=== PATIENT | female | born 1980 | race Caucasian/White ===

== ENCOUNTER 2016-08-21 13:58 | Emergency (ER) | payer OTHER ==
[2016-08-21 14:05] VITALS: RESP 20
[2016-08-21] MEDS ORDERED: MORPHINE SULFATE 10 MG/ML SYRINGE IM STA (14:31)
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
[2016-08-21 15:03] VITALS: BP 133/78; PULSE 80; TEMP 98.4
== END 2016-08-21 15:03 | disposition home or self-care (01) ==
LOC: EC 13:58
DX: T23.291A Burn of second degree of multiple sites of right wrist and hand, initial encounter (principal); T23.292A Burn of second degree of multiple sites of left wrist and hand, initial encounter; T31.0 Burns involving less than 10% of body surface; X10.2XXA Contact with fats and cooking oils, initial encounter; Y93.G3 Activity, cooking and baking; F17.200 Nicotine dependence, unspecified, uncomplicated
CPT/HCPCS: 96372; 99283; J2270

== ENCOUNTER 2016-08-24 17:32 | Emergency (ER) | payer OTHER ==
--- NOTE | 2016-08-24 18:51 | ED ---
General Adult HPI - General Chief complaint: Skin/Abscess/Foreign Body Stated complaint: Recheck on burn wounds Time Seen by Provider: 08/24/16 18:37 Source: patient, RN notes reviewed Mode of arrival: ambulatory Limitations: no limitations - History of Present Illness Initial comments: This is a 36-year-old female presents with a follow-up from sullivan to bilateral hands on 08/21/2016. Patient has been applying bacitracin to the wounds multiple times per day and keeping them wrapped. Patient has noticed some increased blistering but denies any signs of infection. Patient still has range of motion to bilateral hands and denies any loss of sensation. Patient denies any recent fever, chills, shortness breath, chest pain, abdominal pain, nausea/vomiting/diarrhea, back pain, numbness, tingling, hematuria, headache, or visual changes, or any other complaints. - Related Data Home Medications Medication Instructions Recorded Confirmed Ibuprofen [Motrin] 800 mg PO Q6H PRN 08/24/16 08/24/16 Previous Rx's Medication Instructions Recorded HYDROcodone/APAP 5-325MG [[place] 1 - 2 tab PO Q4HR PRN #20 tab 08/21/16 5-325] HYDROcodone/APAP 5-325MG [[place] 1 tab PO Q6HR #7 tab 08/24/16 5-325] Allergies Allergy/AdvReac Type Severity Reaction Status Date / Time No Known Allergies Allergy Verified 08/24/16 18:11 Review of Systems ROS Statement: Those systems with pertinent positive or pertinent negative responses have been documented in the HPI. ROS Other: All systems not noted in ROS Statement are negative. Past Medical History Past Medical History: Hypertension Additional Past Medical History / Comment(s): HEPATITIS C History of Any Multi-Drug Resistant Organisms: None Reported Past Surgical History: No Surgical Hx Reported Past Psychological History: No Psychological Hx Reported Smoking Status: Current some day smoker Past Alcohol Use History: None Reported Past Drug Use History: None Reported General Exam - General Exam Comments Initial Comments: General: The patient is awake and alert, in no distress, and does not appear acutely ill. Neck: The neck is supple, there is no tenderness or JVD. Cardiovascular: There is a regular rate and rhythm. No murmur, rub or gallop is appreciated. Respiratory: Lungs are clear to auscultation, respirations are non-labored, breath sounds are equal. No wheezes, stridor, rales, or rhonchi. Musculoskeletal: Full range of motion, strength last 5/5 and Sensation intact. Radial pulses 2+ bilaterally. Neurological: A&O x 3. CN II-XII intact, There are no obvious motor or sensory deficits. Coordination appears grossly intact. Speech is normal. Skin: There is erythema that blanches to the dorsal and medial aspects of bilateral hands. There is blistering to these areas as well consistent with superficial partial thickness burn. Skin is warm and dry. Psychiatric: Normal mood and affect. Limitations: no limitations Course Vital Signs 08/24/16 17:54 Temperature 98.1 F Pulse Rate 99 Respiratory 20 Rate Blood Pressure 143/90 O2 Sat by Pulse 99 Oximetry Medical Decision Making - Medical Decision Making Is a 36-year-old female presents with sullivan to bilateral hands. On physical exam there is erythema that blanches to the dorsal and medial aspects of bilateral hands. There is blistering to these areas as well consistent with superficial partial thickness burn. Skin is warm and dry. Discussed the patient will receive Silvadene cream to apply to the affected areas as well. Discussed with patient to continue bacitracin 1-4 times daily and keep areas wrapped. Discussed range of motion exercises. Discussed close follow-up with the primary care physician. Discussed signs of infection and return parameters.Discussed that patient should follow up with PCP in one to 2 days or return to the [facility] for any worsening symptoms or for any further concerns. Patient was receptive to this plan and patient will be discharged home. I discussed his case with attending physician Dr. Dubon who agrees the plan as stated above. Disposition Clinical Impression: Second degree sullivan Disposition: HOME SELF-CARE Condition: Good Instructions: Second Degree Burn (ED) Additional Instructions: Please of light Silvadene cream to affected areas once or twice daily. May reapply if cream is rubbed off with activity. May continue bacitracin if needed. Please take pain medication as prescribed. Please follow-up with primary care physician in one to 2 days or return to the [facility] for any worsening symptoms or for any further concerns. Prescriptions: HYDROcodone/APAP 5-325MG [[place] 5-325] 1 tab PO Q6HR #7 tab Time of Disposition: 19:14
[2016-08-24 19:33] VITALS: BP 144/96; PULSE 108; RESP 16; TEMP 98.3
== END 2016-08-24 19:33 | disposition home or self-care (01) ==
LOC: EC 17:32
DX: T23.262D Burn of second degree of back of left hand, subsequent encounter (principal); T23.261D Burn of second degree of back of right hand, subsequent encounter; T31.0 Burns involving less than 10% of body surface; F17.200 Nicotine dependence, unspecified, uncomplicated; X58.XXXD Exposure to other specified factors, subsequent encounter
CPT/HCPCS: 99282

== ENCOUNTER 2016-10-16 17:11 | Emergency (ER) | payer OTHER ==
[2016-10-16 17:29] VITALS: BP 144/94; PULSE 75; RESP 20; TEMP 99.5
--- NOTE | 2016-10-16 17:57 | ED ---
ENT HPI - General Chief complaint: ENT Stated complaint: Q-tip in ear Source: patient Mode of arrival: ambulatory Limitations: no limitations - History of Present Illness Initial comments: Patient is a 36-year-old white female presenting to the emergency department with complaints of tip of Q-tip in her right ear. Patient states she was showering and was cleaning her ears when the top of the Q-tip was gone after she reported from her ear. Patient states that she attempted to remove Q-tip with tracer but is afraid that she might have lots to further in her ear. Patient currently denies ear pain. No history of recent illness, chills, fevers , shortness of breath, chest pain, or abdominal pain. No history of same. Patient denies problems with cerumen impaction. Patient denies difficulty hearing. MD complaint: foreign body Onset/Timin -: hour(s) Location: R ear - Related Data Home Medications Medication Instructions Recorded Confirmed No Known Home Medications [No 10/16/16 10/16/16 Known Home Medications] Allergies Allergy/AdvReac Type Severity Reaction Status Date / Time No Known Allergies Allergy Verified 10/16/16 17:29 Review of Systems ROS Statement: Those systems with pertinent positive or pertinent negative responses have been documented in the HPI. ROS Other: All systems not noted in ROS Statement are negative. Past Medical History Past Medical History: Hypertension Additional Past Medical History / Comment(s): HEPATITIS C History of Any Multi-Drug Resistant Organisms: None Reported Past Surgical History: No Surgical Hx Reported Past Psychological History: No Psychological Hx Reported Smoking Status: Current some day smoker Past Alcohol Use History: None Reported Past Drug Use History: None Reported General Exam - General Exam Comments Initial Comments: GENERAL: Pt awake and alert, well-appearing, well-nourished, and in no acute distress. HEAD: Atraumatic, normocephalic. EYES: Pupils equal, round and reactive to light, extraocular movements intact, sclera anicteric, conjunctiva are normal. ENT: Oropharynx clear without exudates. Moist mucous membranes. NECK:Normal range of motion, supple without lymphadenopathy or JVD. LUNGS: Breath sounds clear to auscultation bilaterally. No wheezes, rales, or rhonchi. HEART: Heart S1, S2, no S3 or S4. Regular rate and rhythm. No murmurs, rubs or gallops. ABDOMEN: Soft, nontender, nondistended, normoactive bowel sounds. NEUROLOGICAL: Pt oriented x 3. No focal deficits. Strength and sensation grossly intact. PSYCH: Normal mood, normal affect. SKIN: Warm, dry, intact. Normal turgor. No rashes or lesions. Limitations: no limitations ENT exam: Present: normal exam, mucous membranes moist, TM's normal bilaterally , normal external ear exam, other (No evidence of foreign body before and after irrigating right ear.) Course Vital Signs 10/16/16 17:27 Temperature 99.5 F Pulse Rate 75 Respiratory 20 Rate Blood Pressure 144/94 O2 Sat by Pulse 100 Oximetry Medical Decision Making - Medical Decision Making Foreign body to right ear, resolved prior to admission. Right ear irrigated with water with no evidence of foreign body. Patient instructed to follow-up with ENT for further sensation of foreign body or any other ear symptoms. Patient agrees to treatment plan. Discharge instructions and return parameters reviewed. Disposition Clinical Impression: Foreign body sensation in right ear canal Disposition: HOME SELF-CARE Condition: Good Instructions: Ear Foreign Body (ED) Additional Instructions: Please follow-up with ENT with further symptoms of ear pain or sensation of foreign body. Please return to the emergency department if symptoms do not improve or get worse. Follow-up with primary care physician as needed. Referrals: Priya Goldsmith MD [Primary Care Provider] - 1-2 days Jonatan Dominguez MD [STAFF PHYSICIAN] - 1-2 days (Follow-up as needed) Time of Disposition: 17:57
== END 2016-10-16 18:06 | disposition home or self-care (01) ==
LOC: EC 17:11
DX: R20.8 Other disturbances of skin sensation (principal); F17.200 Nicotine dependence, unspecified, uncomplicated
CPT/HCPCS: 99282

== ENCOUNTER 2017-01-10 14:55 | Inpatient (IN) | payer OTHER ==
[2017-01-10] MEDS ORDERED: SODIUM CHLORIDE 0.9% 500 ML IV STA ×2 (15:14→19:59)
[2017-01-10] MEDS ORDERED: ACETAMINOPHEN TAB 500 MG TAB PO STA (15:15)
--- NOTE | 2017-01-10 15:27 | ED ---
General Adult HPI - General Source: patient, family, RN notes reviewed Mode of arrival: wheelchair Limitations: no limitations <Lee Adair - Last Filed: 01/10/17 16:20> <Lee Ramos - Last Filed: 01/10/17 20:02> - General Chief complaint: Overdose Stated complaint: Mental Health Time Seen by Provider: 01/10/17 15:00 - History of Present Illness Initial comments: This is a 36-year-old female comes in stating she wanted to kill herself last night she took a bunch of drugs. Patient states before midnight she did the drugs but she is not exactly sure when a patient states she took LSD took a bottle full of Wellbutrin a bottle for Klonopin and drank alcohol. Patient states she is a daily drinker. Patient denies any headache patient denies numbness weakness. Patient denies palpitations difficulty breathing or shortness of breath per patient denies any abdominal pain patient denies nausea vomiting diarrhea. (Lee Adair) - Related Data Home Medications Medication Instructions Recorded Confirmed Folic Acid 1 mg PO DAILY 01/10/17 01/10/17 Propranolol [Inderal] 10 mg PO DAILY 01/10/17 01/10/17 buPROPion [Wellbutrin] 75 mg PO BID 01/10/17 01/10/17 clonazePAM [KlonoPIN] 0.5 mg PO DAILY PRN 01/10/17 01/10/17 Allergies Allergy/AdvReac Type Severity Reaction Status Date / Time No Known Allergies Allergy Verified 01/10/17 15:53 Review of Systems ROS Other: All systems not noted in ROS Statement are negative. <Lee Adair - Last Filed: 01/10/17 16:20> ROS Other: All systems not noted in ROS Statement are negative. <Lee Ramos - Last Filed: 01/10/17 20:02> ROS Statement: Those systems with pertinent positive or pertinent negative responses have been documented in the HPI. Past Medical History Past Medical History: Hypertension Additional Past Medical History / Comment(s): HEPATITIS C History of Any Multi-Drug Resistant Organisms: None Reported Past Surgical History: No Surgical Hx Reported Past Psychological History: No Psychological Hx Reported Smoking Status: Current some day smoker Past Alcohol Use History: None Reported, Occasional Past Drug Use History: None Reported, Opiates <Lee Adair - Last Filed: 01/10/17 16:20> General Exam Limitations: no limitations <AdairLee - Last Filed: 01/10/17 16:20> <Lee Ramos - Last Filed: 01/10/17 20:02> - General Exam Comments Initial Comments: GENERAL: Patient is well-developed and well-nourished. Patient is nontoxic and well- hydrated and is in mild distress. ENT: Neck is soft and supple. No significant lymphadenopathy is noted. Oropharynx is clear. Moist mucous membranes. Neck has full range of motion without eliciting any pain. EYES: The sclera were anicteric and conjunctiva were pink and moist. Extraocular movements were intact and pupils were equal round and reactive to light. Eyelids were unremarkable. PULMONARY: Unlabored respirations. Good breath sounds bilaterally. No audible rales rhonchi or wheezing was noted. CARDIOVASCULAR: There is a regular rate and rhythm without any murmurs gallops or rubs. ABDOMEN: Soft and nontender with normal bowel sounds. No palpable organomegaly was noted. There is no palpable pulsatile mass. SKIN: Skin is clear with no lesions or rashes and otherwise unremarkable. NEUROLOGIC: Patient is alert and oriented x3. Cranial nerves II through XII are grossly intact. Motor and sensory are also intact. Normal speech, volume and content. Symmetrical smile. MUSCULOSKELETAL: Normal extremities with adequate strength and full range of motion. LYMPHATICS: No significant lymphadenopathy is noted PSYCHIATRIC: Patient states she is suicidal. (Lee Adair) Medical Decision Making <Lee Adair - Last Filed: 01/10/17 16:20> - Lab Data Result diagrams: 01/10/17 16:02 01/10/17 16:02 <Lee Ramos - Last Filed: 01/10/17 20:02> - Medical Decision Making EKG shows sinus tachycardia at 114 bpm AR interval is on a 56 dresses 80 QT interval 332 QTC is 457. Patient's EKG shows no ST segment elevation however there is a little bit of depression in V4 through V6 leads. Chest x-ray shows no acute abnormality. Dr. Ramos taking over care of this patient at 5 PM (Lee Adair) 36-year-old female Angelita Friedman reevaluation Cissell temper multiple drug overdose, patient found to be going to alcohol withdrawal, likely DTs, will be admitted for supportive care, patient also had suicide precautions, psychiatric evaluation (Lee Ramos) - Lab Data Lab Results 01/10/17 01/10/17 01/10/17 Range/Units 16:02 16:02 16:02 WBC 8.0 (3.8-10.6) k/uL RBC 4.30 (3.80-5.40) m/uL Hgb 13.2 (11.4-16.0) gm/dL Hct 39.1 (34.0-46.0) % MCV 91.0 (80.0-100.0) fL MCH 30.7 (25.0-35.0) pg MCHC 33.8 (31.0-37.0) g/dL RDW 13.2 (11.5-15.5) % Plt Count 295 (150-450) k/uL Neutrophils % 76 % Lymphocytes % 15 % Monocytes % 4 % Eosinophils % 2 % Basophils % 0 % Neutrophils # 6.1 (1.3-7.7) k/uL Lymphocytes # 1.2 (1.0-4.8) k/uL Monocytes # 0.4 (0-1.0) k/uL Eosinophils # 0.1 (0-0.7) k/uL Basophils # 0.0 (0-0.2) k/uL PT (9.0-12.0) sec INR (<1.1) APTT (22.0-30.0) sec Sodium 136 L (137-145) mmol/L Potassium 3.9 (3.5-5.1) mmol/L Chloride 103 (98-107) mmol/L Carbon Dioxide 22 (22-30) mmol/L Anion Gap 11 mmol/L BUN 10 (7-17) mg/dL Creatinine 0.63 (0.52-1.04) mg/dL Est GFR (MDRD) Af Amer >60 (>60 ml/min/1.73 sqM) Est GFR (MDRD) Non-Af >60 (>60 ml/min/1.73 sqM) Glucose 100 H (74-99) mg/dL Plasma Lactic Acid Daryl (0.7-2.0) mmol/L Calcium 9.5 (8.4-10.2) mg/dL Total Bilirubin 1.1 (0.2-1.3) mg/dL AST 143 H (14-36) U/L ALT 138 H (9-52) U/L Alkaline Phosphatase 85 (38-126) U/L Troponin I (0.000-0.034) ng/mL Total Protein 8.0 (6.3-8.2) g/dL Albumin 4.4 (3.5-5.0) g/dL Urine Color Urine Appearance (Clear) Urine pH (5.0-8.0) Ur Specific Elk (1.001-1.035) Urine Protein (Negative) Urine Glucose (UA) (Negative) Urine Ketones (Negative) Urine Blood (Negative) Urine Nitrite (Negative) Urine Bilirubin (Negative) Urine Urobilinogen (<2.0) mg/dL Ur Leukocyte Esterase (Negative) Urine HCG, Qual (Not Detectd) Salicylates <1.0 mg/dL Urine Opiates Screen (NotDetected) Ur Oxycodone Screen (NotDetected) Urine Methadone Screen (NotDetected) Ur Propoxyphene Screen (NotDetected) Acetaminophen <10.0 ug/mL Ur Barbiturates Screen (NotDetected) U Tricyclic Antidepress (NotDetected) Ur Phencyclidine Scrn (NotDetected) Ur Amphetamines Screen (NotDetected) U Methamphetamines Scrn (NotDetected) U Benzodiazepines Scrn (NotDetected) Urine Cocaine Screen (NotDetected) U Marijuana (THC) Screen (NotDetected) Serum Alcohol <10 mg/dL Influenza Type A RNA Not Detected (Not Detectd) Influenza Type B (PCR) Not Detected (Not Detectd) 01/10/17 01/10/17 01/10/17 Range/Units 16:02 16:02 16:02 WBC (3.8-10.6) k/uL RBC (3.80-5.40) m/uL Hgb (11.4-16.0) gm/dL Hct (34.0-46.0) % MCV (80.0-100.0) fL MCH (25.0-35.0) pg MCHC (31.0-37.0) g/dL RDW (11.5-15.5) % Plt Count (150-450) k/uL Neutrophils % % Lymphocytes % % Monocytes % % Eosinophils % % Basophils % % Neutrophils # (1.3-7.7) k/uL Lymphocytes # (1.0-4.8) k/uL Monocytes # (0-1.0) k/uL Eosinophils # (0-0.7) k/uL Basophils # (0-0.2) k/uL PT 10.6 (9.0-12.0) sec INR 1.0 (<1.1) APTT 24.6 (22.0-30.0) sec Sodium (137-145) mmol/L Potassium (3.5-5.1) mmol/L Chloride (98-107) mmol/L Carbon Dioxide (22-30) mmol/L Anion Gap mmol/L BUN (7-17) mg/dL Creatinine (0.52-1.04) mg/dL Est GFR (MDRD) Af Amer (>60 ml/min/1.73 sqM) Est GFR (MDRD) Non-Af (>60 ml/min/1.73 sqM) Glucose (74-99) mg/dL Plasma Lactic Acid Daryl 1.3 (0.7-2.0) mmol/L Calcium (8.4-10.2) mg/dL Total Bilirubin (0.2-1.3) mg/dL AST (14-36) U/L ALT (9-52) U/L Alkaline Phosphatase (38-126) U/L Troponin I <0.012 (0.000-0.034) ng/mL Total Protein (6.3-8.2) g/dL Albumin (3.5-5.0) g/dL Urine Color Urine Appearance (Clear) Urine pH (5.0-8.0) Ur Specific Elk (1.001-1.035) Urine Protein (Negative) Urine Glucose (UA) (Negative) Urine Ketones (Negative) Urine Blood (Negative) Urine Nitrite (Negative) Urine Bilirubin (Negative) Urine Urobilinogen (<2.0) mg/dL Ur Leukocyte Esterase (Negative) Urine HCG, Qual (Not Detectd) Salicylates mg/dL Urine Opiates Screen (NotDetected) Ur Oxycodone Screen (NotDetected) Urine Methadone Screen (NotDetected) Ur Propoxyphene Screen (NotDetected) Acetaminophen ug/mL Ur Barbiturates Screen (NotDetected) U Tricyclic Antidepress (NotDetected) Ur Phencyclidine Scrn (NotDetected) Ur Amphetamines Screen (NotDetected) U Methamphetamines Scrn (NotDetected) U Benzodiazepines Scrn (NotDetected) Urine Cocaine Screen (NotDetected) U Marijuana (THC) Screen (NotDetected) Serum Alcohol mg/dL Influenza Type A RNA (Not Detectd) Influenza Type B (PCR) (Not Detectd) 01/10/17 01/10/17 Range/Units 16:25 16:25 WBC (3.8-10.6) k/uL RBC (3.80-5.40) m/uL Hgb (11.4-16.0) gm/dL Hct (34.0-46.0) % MCV (80.0-100.0) fL MCH (25.0-35.0) pg MCHC (31.0-37.0) g/dL RDW (11.5-15.5) % Plt Count (150-450) k/uL Neutrophils % % Lymphocytes % % Monocytes % % Eosinophils % % Basophils % % Neutrophils # (1.3-7.7) k/uL Lymphocytes # (1.0-4.8) k/uL Monocytes # (0-1.0) k/uL Eosinophils # (0-0.7) k/uL Basophils # (0-0.2) k/uL PT (9.0-12.0) sec INR (<1.1) APTT (22.0-30.0) sec Sodium (137-145) mmol/L Potassium (3.5-5.1) mmol/L Chloride (98-107) mmol/L Carbon Dioxide (22-30) mmol/L Anion Gap mmol/L BUN (7-17) mg/dL Creatinine (0.52-1.04) mg/dL Est GFR (MDRD) Af Amer (>60 ml/min/1.73 sqM) Est GFR (MDRD) Non-Af (>60 ml/min/1.73 sqM) Glucose (74-99) mg/dL Plasma Lactic Acid Daryl (0.7-2.0) mmol/L Calcium (8.4-10.2) mg/dL Total Bilirubin (0.2-1.3) mg/dL AST (14-36) U/L ALT (9-52) U/L Alkaline Phosphatase (38-126) U/L Troponin I (0.000-0.034) ng/mL Total Protein (6.3-8.2) g/dL Albumin (3.5-5.0) g/dL Urine Color Light Yellow Urine Appearance Clear (Clear) Urine pH 5.0 (5.0-8.0) Ur Specific Elk 1.005 (1.001-1.035) Urine Protein Negative (Negative) Urine Glucose (UA) Negative (Negative) Urine Ketones Negative (Negative) Urine Blood Negative (Negative) Urine Nitrite Negative (Negative) Urine Bilirubin Negative (Negative) Urine Urobilinogen <2.0 (<2.0) mg/dL Ur Leukocyte Esterase Negative (Negative) Urine HCG, Qual Not Detected (Not Detectd) Salicylates mg/dL Urine Opiates Screen Not Detected (NotDetected) Ur Oxycodone Screen Not Detected (NotDetected) Urine Methadone Screen Not Detected (NotDetected) Ur Propoxyphene Screen Not Detected (NotDetected) Acetaminophen ug/mL Ur Barbiturates Screen Not Detected (NotDetected) U Tricyclic Antidepress Not Detected (NotDetected) Ur Phencyclidine Scrn Not Detected (NotDetected) Ur Amphetamines Screen Not Detected (NotDetected) U Methamphetamines Scrn Not Detected (NotDetected) U Benzodiazepines Scrn Not Detected (NotDetected) Urine Cocaine Screen Not Detected (NotDetected) U Marijuana (THC) Screen Not Detected (NotDetected) Serum Alcohol mg/dL Influenza Type A RNA (Not Detectd) Influenza Type B (PCR) (Not Detectd) Critical Care Time Critical Care Time: Yes Total Critical Care Time: 31 <eLe Ramos - Last Filed: 01/10/17 20:02> Disposition <Lee Adair - Last Filed: 01/10/17 16:20> <Lee Ramos - Last Filed: 01/10/17 20:02> Clinical Impression: Drug overdose, Suicide attempt by multiple drug overdose, Alcohol withdrawal Disposition: ADMITTED IP TO THIS HOSP Condition: Serious Referrals: Priya Goldsmith MD [Primary Care Provider] - 1-2 days
[2017-01-10] MEDS: SODIUM CHLORIDE 0.9% 500 ML IV SCH ×2 (16:12→16:13)
--- NOTE | 2017-01-10 16:18 | XR ---
EXAMINATION TYPE: XR chest 2V DATE OF EXAM: 01/10/2017 4:08 PM COMPARISON: 01/10/2015 HISTORY: Fever TECHNIQUE: Frontal and lateral views of the chest are obtained. FINDINGS: Heart and mediastinum are normal. Lungs are clear. Diaphragm is normal. There are chest le ads. Bony thorax appears intact. IMPRESSION: Normal chest. No change.
[2017-01-10 16:24] LABS: Basophils % (A) 0 %; CHCM 34.2; Eosinophils # (A) 0.1 k/uL (0-0.7); Eosinophils % (A) 2 %; HCT 39.1 % (34.0-46.0); HGB 13.2 gm/dL (11.4-16.0); Luc # (Auto) 0.15; Luc % (Auto) 2; Lymphocytes # (A) 1.2 k/uL (1.0-4.8); Lymphocytes % (A) 15 %; MCH 30.7 pg (25.0-35.0); MCHC 33.8 g/dL (31.0-37.0); Mean Platelet Volume 7.3; Monocytes # (A) 0.4 k/uL (0-1.0); Monocytes % (A) 4 %; Neutrophils # (A) 6.1 k/uL (1.3-7.7); Neutrophils % (A) 76 %; RDW 13.2 % (11.5-15.5); WBC (Perox) 7.63
[2017-01-10 16:28] LABS: Partial Thromboplastin Time 24.6 sec (22.0-30.0); Prothrombin Time 10.6 sec (9.0-12.0)
[2017-01-10 16:32] LABS: ALT 138 U/L (9-52); AST 143 U/L (14-36); Acetaminophen <10.0 ug/mL; Alcohol <10 mg/dL; Alkaline Phosphatase 85 U/L (38-126); Anion Gap 11 mmol/L; Blood Urea Nitrogen 10 mg/dL (7-17); Calcium 9.5 mg/dL (8.4-10.2); Carbon Dioxide 22 mmol/L (22-30); Chloride 103 mmol/L (98-107); Glucose 100 mg/dL (74-99); Non-African American GFR(MDRD) >60 (>60 ml/min/1.73 sqM); Potassium 3.9 mmol/L (3.5-5.1); Salicylate <1.0 mg/dL; Sodium 136 mmol/L (137-145); Total Bilirubin 1.1 mg/dL (0.2-1.3)
[2017-01-10 16:40] LABS: Appearance,Urine Clear (Clear); Bilirubin,Urine Negative (Negative); Glucose,Urine (UA) Negative (Negative); Ketones,Urine Negative (Negative); Leukocyte Esterase,Urine Negative (Negative); Nitrite,Urine Negative (Negative); Protein,Urine Negative (Negative); Specific Gravity,Urine 1.005 (1.001-1.035); UA Billing (MACRO vs. MICRO) CHEM; Urobilinogen,Urine <2.0 mg/dL (<2.0)
[2017-01-10] MEDS ORDERED: ONDANSETRON 4 MG/2 ML VIAL IVP STA (17:29)
[2017-01-10] MEDS ORDERED: LORazepam 1 MG TAB PO STA (19:05)
[2017-01-10] MEDS ORDERED: THIAMINE 100 MG/ML 2 ML VIAL IM STA (19:59)
[2017-01-10] MEDS ORDERED: LORazepam 2 MG/ML SYRINGE IV STA (19:59)
[2017-01-10] MEDS ORDERED: SODIUM CHLORIDE 0.9% 1,000 ML IV STA (19:59)
[2017-01-10] MEDS ORDERED: LORazepam 2 MG/ML SYRINGE IV PRN ×3 (19:59)
[2017-01-10] MEDS: THIAMINE 100 MG TAB PO SCH (22:55)
[2017-01-10 23:08] VITALS: BMI 24.5
[2017-01-11] MEDS: ENOXAPARIN 40 MG/0.4 ML SYRINGE SQ SCH (09:14)
[2017-01-11] MEDS: THIAMINE 100 MG TAB PO SCH ×2 (14:00→17:33)
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
[2017-01-11] MEDS ORDERED: TEMAZEPAM 15 MG CAP PO PRN (15:38)
[2017-01-11] MEDS: PROPRANOLOL 10 MG TAB PO SCH (17:33)
[2017-01-11] MEDS: FOLIC ACID 1 MG TAB PO SCH (17:33)
[2017-01-11] MEDS: NICOTINE 14MG/24HR PATCH TRANSDERM SCH (17:33)
--- NOTE | 2017-01-11 18:35 | HP ---
DATE OF ADMISSION: 01/10/2017 DATE OF SERVICE: 01/11/2017 CHIEF COMPLAINT: Overdose. HISTORY OF PRESENT ILLNESS: This 36-year-old woman with a past history of hypertension, history of hepatitis C, history of endometriosis, history of anxiety, history of nicotine dependence, being followed by Dr. Goldsmith in the outpatient setting, was admitted to [facility] with overdose. The patient was apparently trying to kill herself, according to the staff note, and the patient was taken to [facility] and admitted for further evaluation and treatment. The patient took a bottle of Wellbutrin, a bottle of Klonopin, and drank alcohol also. The patient apparently was binge-drinking also. The patient came to [facility]. The patient complains of some tremors and also features of delirium tremens. Patient is mildly confused. PAST MEDICAL HISTORY: 1. History of hypertension. 2. History of hepatitis C. 3. History of endometriosis. 4. History of anxiety. HOME MEDICATIONS: 1. Klonopin 0.5 mg daily p.r.n. 2. Wellbutrin 75 mg p.o. b.i.d. 3. Inderal 10 mg p.o. b.i.d. 4. Folic acid 1 mg daily. ALLERGIES: NONE. FAMILY HISTORY: History of mental illness, unspecified. SOCIAL HISTORY: History of alcohol. History of THC. History of nicotine dependence. REVIEW OF SYSTEMS: ENT: No diminishing hearing. No diminished vision. CARDIOVASCULAR SYSTEM: No angina, palpitations. RESPIRATORY SYSTEM: No cough. GI: No nausea. : No dysuria. NERVOUS SYSTEM: No numbness or weakness. ALLERGY/IMMUNOLOGY: No asthma, hayfever. MUSCULOSKELETAL: As mentioned earlier. HEMATOLOGY/ONCOLOGY: No history of anemia. ENDOCRINE: No history of diabetes. CONSTITUTIONAL: As mentioned earlier. DERMATOLOGY: Negative. RHEUMATOLOGY: Negative. PSYCHIATRY: As mentioned earlier. PHYSICAL EXAMINATION: Patient is alert and oriented x3. Pulse is 73, blood pressure 116/85, respiration 16, temperature 97 degrees, pulse ox 100% on room air. HEENT: Conjunctivae normal. Oral mucosa moist. NECK: No jugular venous distention. No carotid bruit. No lymph node enlargement. CARDIOVASCULAR SYSTEM: S1, S2 muffled. No S3. No S4. RESPIRATORY SYSTEM: Breath sounds diminished at the bases. No rhonchi. No crackles. ABDOMEN: Soft, non-tender. No mass palpable. LEGS: No edema. No swelling. NERVOUS SYSTEM: Higher functions as mentioned earlier. Moves all 4 limbs. No focal motor or sensory deficit. LYMPHATICS: No lymph node palpable in neck, axillae or groin. SKIN: No ulcer, rash, bleeding. LABS: CBC within normal limits. Sodium 136. AST is 143. ALT is 138. Influenza negative. ASSESSMENT: 1. Status post overdose. 2. History of ethanol. 3. Ethanol withdrawal and early delirium tremens. 4. Increased AST and alcoholic hepatitis. 5. Hyponatremia, possibly secondary to alcoholism. 6. Depression. 7. Anxiety. 8. History of nicotine dependence. 9. History of hepatitis C. 10. History of endometriosis. 11. History of hypertension, essential. RECOMMENDATIONS AND DISCUSSION: In this 36-year-old woman who presented with multiple complex medical issues, we will monitor the patient closely, CIWA protocol. Recommend multivitamin supplementation. Otherwise, I would also recommend DVT prophylaxis, psychiatry consultation. The patient has been petitioned at this time. I would also recommend resuming the home medications. The prognosis is guarded because of multiple complex medical issues. Further recommendations to follow. I also recommend that the patient follow up closely with Dr. Goldsmith after discharge. washtub worker helper and complex case manager to arrange for rehab.
[2017-01-12] MEDS ORDERED: PANTOPRAZOLE 40 MG TABLET PO SCH (07:30)
[2017-01-12 07:41] VITALS: RESP 18
[2017-01-12 08:26] LABS: Basophils % (A) 1 %; CH 30.7; CHCM 32.7; Eosinophils # (A) 0.3 k/uL (0-0.7); Eosinophils % (A) 5 %; HCT 40.1 % (34.0-46.0); HDW 2.13; HGB 13.1 gm/dL (11.4-16.0); Luc # (Auto) 0.12; Luc % (Auto) 2; Lymphocytes # (A) 1.3 k/uL (1.0-4.8); Lymphocytes % (A) 22 %; MCH 30.8 pg (25.0-35.0); MCHC 32.7 g/dL (31.0-37.0); MCV 94.1 fL (80.0-100.0); Mean Platelet Volume 7.3; Monocytes # (A) 0.4 k/uL (0-1.0); Monocytes % (A) 6 %; Neutrophils # (A) 3.8 k/uL (1.3-7.7); Neutrophils % (A) 65 %; RBC 4.27 m/uL (3.80-5.40); RDW 13.3 % (11.5-15.5); WBC 5.9 k/uL (3.8-10.6); WBC (Perox) 5.88
[2017-01-12] MEDS: NICOTINE 14MG/24HR PATCH TRANSDERM SCH (08:27)
[2017-01-12] MEDS: ENOXAPARIN 40 MG/0.4 ML SYRINGE SQ SCH (08:27)
[2017-01-12] MEDS: FOLIC ACID 1 MG TAB PO SCH (08:28)
[2017-01-12] MEDS: PROPRANOLOL 10 MG TAB PO SCH (08:28)
[2017-01-12 08:46] LABS: ALT 141 U/L (9-52); AST 125 U/L (14-36); Alkaline Phosphatase 65 U/L (38-126); Anion Gap 10 mmol/L; Blood Urea Nitrogen 8 mg/dL (7-17); Calcium 9.6 mg/dL (8.4-10.2); Carbon Dioxide 22 mmol/L (22-30); Chloride 108 mmol/L (98-107); Glucose 103 mg/dL (74-99); Non-African American GFR(MDRD) >60 (>60 ml/min/1.73 sqM); Potassium 4.5 mmol/L (3.5-5.1); Sodium 140 mmol/L (137-145); Total Protein 7.6 g/dL (6.3-8.2)
[2017-01-12] MEDS: THIAMINE 100 MG TAB PO SCH (11:49)
[2017-01-12] MEDS ORDERED: MULTIVITAMINS, THERA 1 EACH TAB PO SCH (12:00)
[2017-01-12 15:12] VITALS: BP 120/77; PULSE 79; TEMP 99.1
--- NOTE | 2017-01-13 08:10 | DS ---
DATE OF ADMISSION: 01/10/2017 DATE OF DISCHARGE: 01/12/2017 36 -year-old in an attempt to commit suicide overdosed on Wellbutrin and Klonopin. Patient is clinically doing well. The patient is medically stable to be discharged to psychiatry facility. The patient is willing to sign to go to subacute rehabilitation. Patient has a chronically elevated liver enzymes secondary to hepatitis C and patient also has a component of alcoholic hepatitis and acute alcoholic hepatitis and patient is not having withdrawals at this point of time. Patient was seen and examined on the day of discharge. Vital signs are stable. PHYSICAL EXAMINATION: GENERAL: The patient is alert and oriented x3, not in any acute distress. Well developed, well nourished. HEENT: Pupils are round and equally reacting to light. EOMI. No scleral icterus. No conjunctival pallor. Normocephalic, atraumatic. No pharyngeal erythema. No thyromegaly. CARDIOVASCULAR: S1 and S2 present. No murmurs, rubs, or gallops. PULMONARY: Chest is clear to auscultation, no wheezing or crackles. ABDOMEN: Soft, nontender, nondistended, normoactive bowel sounds. No palpable organomegaly. MUSCULOSKELETAL: No joint swelling or deformity. EXTREMITIES: No cyanosis, clubbing, or pedal edema. NEUROLOGICAL: Gross neurological examination did not reveal any focal deficits. SKIN: No rashes. FINAL DIAGNOSIS(ES): 1. Suicide attempt. 2. Overdose on the above medications. 3. Patient was watched for withdrawals. 4. Increased liver enzymes secondary to alcoholic hepatitis as well as hepatitis C leading to chronic elevation and patient will need to follow with gastroenterology as an outpatient for her hep C for further evaluation and treatment as an outpatient. 5. Depression. 6. Anxiety disorder. 7. Hypertension. 8. Nicotine dependence. Patient will be discharged to psychiatric floor. Activity as tolerated. Regular diet. Please refer to my depart summary for further details of discharge medication. Spent greater than 35 minutes in discharge process.
== END 2017-01-12 16:26 | DRG 918 ==
LOC: EC 14:55 → 5MS5E 20:00
PROVIDERS: ADMIT Hospitalist; ATTEND Hospitalist
DX: T43.292A Poisoning by other antidepressants, intentional self-harm, initial encounter (principal); F10.231 Alcohol dependence with withdrawal delirium; K70.10 Alcoholic hepatitis without ascites; E87.1 Hypo-osmolality and hyponatremia; T42.4X2A Poisoning by benzodiazepines, intentional self-harm, initial encounter; F32.9 Major depressive disorder, single episode, unspecified; B19.20 Unspecified viral hepatitis C without hepatic coma; I10 Essential (primary) hypertension; F17.200 Nicotine dependence, unspecified, uncomplicated; F41.9 Anxiety disorder, unspecified; Z79.899 Other long term (current) drug therapy; Y92.039 Unspecified place in apartment as the place of occurrence of the external cause
CPT/HCPCS: 36415; 71020; 80053; 80306; 80320; 81003; 81025; 82075; 83520; 83605; 84484; 85025; 85610; 85730; 87040; 87086; 87502; 93005; 96361; 96374; 99291

== ENCOUNTER 2017-01-12 15:21 | Inpatient (IN) | payer MEDICAID ==
[2017-01-12] MEDS ORDERED: ZIPRASIDONE 20 MG VIAL IM PRN (16:28)
[2017-01-12] MEDS ORDERED: MAGNESIUM HYDROXIDE 2,400 MG/10 ML CUP PO PRN (16:28)
[2017-01-12] MEDS ORDERED: MAG HYDROX/AL HYDROX/SIMETH 30 ML CUP PO PRN (16:28)
[2017-01-12] MEDS ORDERED: LORazepam 1 MG TAB PO PRN (16:28)
[2017-01-12] MEDS ORDERED: LORazepam 2 MG/ML SYRINGE IM PRN (16:35)
[2017-01-12 17:09] VITALS: BMI 21.0
[2017-01-12] MEDS: THIAMINE 100 MG TAB PO SCH (18:26)
[2017-01-13] MEDS: THIAMINE 100 MG TAB PO SCH ×2 (08:17→16:28)
[2017-01-13] MEDS: PANTOPRAZOLE 40 MG TABLET PO SCH (08:17)
[2017-01-13] MEDS: FOLIC ACID 1 MG TAB PO SCH (08:17)
[2017-01-13] MEDS: NICOTINE 14MG/24HR PATCH TRANSDERM SCH (08:17)
[2017-01-13] MEDS: PROPRANOLOL 10 MG TAB PO SCH (08:17)
[2017-01-13 09:35] LABS: Basophils % (A) 0 %; CH 31.1; CHCM 33.4; Eosinophils # (A) 0.3 k/uL (0-0.7); Eosinophils % (A) 4 %; HCT 44.8 % (34.0-46.0); HDW 2.29; HGB 14.8 gm/dL (11.4-16.0); Luc # (Auto) 0.13; Luc % (Auto) 2; Lymphocytes # (A) 1.3 k/uL (1.0-4.8); Lymphocytes % (A) 17 %; MCH 30.8 pg (25.0-35.0); MCV 93.3 fL (80.0-100.0); Mean Platelet Volume 7.3; Monocytes # (A) 0.4 k/uL (0-1.0); Monocytes % (A) 6 %; Neutrophils # (A) 5.4 k/uL (1.3-7.7); Neutrophils % (A) 72 %; WBC 7.6 k/uL (3.8-10.6); WBC (Perox) 7.71
[2017-01-13 09:43] LABS: ALT 153 U/L (9-52); AST 121 U/L (14-36); Alkaline Phosphatase 67 U/L (38-126); Anion Gap 16 mmol/L; Blood Urea Nitrogen 14 mg/dL (7-17); Calcium 10.3 mg/dL (8.4-10.2); Carbon Dioxide 21 mmol/L (22-30); Chloride 106 mmol/L (98-107); Glucose 102 mg/dL (74-99); Non-African American GFR(MDRD) >60 (>60 ml/min/1.73 sqM); Potassium 4.3 mmol/L (3.5-5.1); Sodium 143 mmol/L (137-145); Total Bilirubin 0.8 mg/dL (0.2-1.3); Total Protein 8.7 g/dL (6.3-8.2)
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
[2017-01-13] MEDS: VENLAFAXINE HCL ER 75 MG CAP PO SCH (11:13)
--- NOTE | 2017-01-13 23:22 | CONS ---
DATE OF CONSULTATION: REASON FOR CONSULTATION: Elevated liver enzymes. Patient is a 36-year-old was discharged from my service after she overdosed on Wellbutrin and Klonopin and the patient is clinically doing well and patient does have history of hepatitis C leading to elevated liver enzymes. Patient denied any fever, chills, nausea, vomiting, abdominal pain, dysuria. REVIEW OF SYSTEMS: CONSTITUTIONAL: No fever, no malaise, no fatigue. HEENT: No recent visual problems or hearing problems. Denied any sore throat. CARDIOVASCULAR: No chest pain, orthopnea, PND, no palpitations, no syncope. PULMONARY: No shortness of breath, no cough, no hemoptysis. GASTROINTESTINAL: No diarrhea, no nausea, no vomiting, no abdominal pain. Normoactive bowel sounds. NEUROLOGICAL: No headaches, no weakness, no numbness. HEMATOLOGICAL: Denies any bleeding or petechiae. GENITOURINARY: Denies any burning micturition, frequency, or urgency. MUSCULOSKELETAL/RHEUMATOLOGICAL: Denies any joint pain, swelling, or any muscle pain. ENDOCRINE: Denies any polyuria or polydipsia. The rest of the 14 point review of systems is negative. Home medications include: 1. Patient is presently on Folic acid. 2. Lorazapam. 3. Magnesium oxide. 4. Nicotine transdermal patch. 5. Protonix. 6. Propranolol. 7. Thiamine. 8. Venlafaxine. 9. Trazodone. PAST MEDICAL HISTORY: Significant for hypertension, hepatitis C, endometriosis, diverticulitis in the past. The patient does smoke. History of alcohol abuse. The patient is not having withdrawals. Patient was ( ) withdrawals here in the hospital until yesterday. Marijuana use and opiate abuse and prescription drug abuse in the past with positive hepatitis C. FAMILY HISTORY: Significant for mental illness in multiple family members. PHYSICAL EXAMINATION: VITAL SIGNS: Temperature 98.2, pulse of 96, respiratory rate of 16, blood pressure 157/103. Saturating at 100% on room air. GENERAL: The patient is alert and oriented x3, not in any acute distress. Well developed, well nourished. HEENT: Pupils are round and equally reacting to light. EOMI. No scleral icterus. No conjunctival pallor. Normocephalic, atraumatic. No pharyngeal erythema. No thyromegaly. CARDIOVASCULAR: S1 and S2 present. No murmurs, rubs, or gallops. PULMONARY: Chest is clear to auscultation, no wheezing or crackles. ABDOMEN: Soft, nontender, nondistended, normoactive bowel sounds. No palpable organomegaly. MUSCULOSKELETAL: No joint swelling or deformity. EXTREMITIES: No cyanosis, clubbing, or pedal edema. NEUROLOGICAL: Gross neurological examination did not reveal any focal deficits. SKIN: No rashes. Laboratory data: Liver enzymes are elevated but stable compared to yesterday. ASSESSMENT AND PLAN: 1. Elevated liver enzymes due to chronic Hep C. No further intervention is necessary at this point of time. 2. Depression suicide attempt management as per primary service. 3. Hepatitis C, for which patient will need to follow with gastroenterology as an outpatient. The same thing was discussed with the patient. Patient does not have any alcohol withdrawals at this point of time. 4. Depression. 5. Hypertension. Continue Propranolol with well-controlled heart rate and blood pressure. Thank you for letting me participate in this patient's care. Will sign off at this point of time.
[2017-01-14] MEDS: NICOTINE 14MG/24HR PATCH TRANSDERM SCH (08:55)
[2017-01-14] MEDS: PANTOPRAZOLE 40 MG TABLET PO SCH (08:55)
[2017-01-14] MEDS: PROPRANOLOL 10 MG TAB PO SCH (08:55)
[2017-01-14] MEDS: VENLAFAXINE HCL ER 75 MG CAP PO SCH (08:55)
[2017-01-14] MEDS: FOLIC ACID 1 MG TAB PO SCH (08:55)
[2017-01-14] MEDS: THIAMINE 100 MG TAB PO SCH ×2 (12:12→16:30)
[2017-01-14] MEDS: LORazepam 0.5 MG TAB PO PRN (12:39)
--- NOTE | 2017-01-14 13:53 | P.PN ---
Progress Note - Text INTERVERAL HISTORY:Patientin monica, came to office. Reports she knows it's too early but feels better with the Effexor. States she did not sleep well last night due to roommate up all night. She has taken trazodone in the past and felt it was helpful w/o negative side effects. Her BP was elevated, RN gave ativan. Patient reports she heard her friend who works at [employer] will be coming to day with her mother for the meeting. SW has reported mother will help patient with finances if she agrees to enter [employer]. This will be discussed in the family meeting. MENTAL STATUS EXAM:Patient alert and oriented 3, good eye contact, well groomed in street clothing. Speech normal volume, rate and production. Coherent, logical and goal directed thought process. No SABRA, no FOI. [No TB/TW/ TI] Denied auditory and visual hallucinations. Denied paranoid ideation, delusions or IOR. Memory [intact] Cognition average Mood neutral, affect full range decreased intensity, congruent with mood. Denies suicidal ideation, denies homicidal ideation. Insight partial; Judgement grossly intact for treatment purposes ETOH Withdrawal Depression, unspecified Rule out anxiety disorder unspecified Alcohol dependence, severe Hallucinogenic use History of PTSD PLAN:Continue inpatient psychiatry hospitalization for safety and for treatment purposes. Continue CIWA scale, possible alcohol withdrawal. Increase venlafaxine to 150 mg every morning Trazodone 50 mg daily at bedtime for insomnia when necessary Family meeting that may cause significant distress for the patient, we'll need to reassess this patient would be ready for discharge tomorrow. Continue milieu therapy .
[2017-01-14] MEDS ORDERED: traZODone HCL 50 MG TAB PO PRN (13:54)
[2017-01-15 06:53] VITALS: BP 102/66; PULSE 72; RESP 14; TEMP 98
[2017-01-15] MEDS ORDERED: VENLAFAXINE HCL ER 150 MG CAP PO SCH (09:00)
[2017-01-15] MEDS: PANTOPRAZOLE 40 MG TABLET PO SCH (09:06)
[2017-01-15] MEDS: NICOTINE 14MG/24HR PATCH TRANSDERM SCH (09:06)
[2017-01-15] MEDS: LORazepam 0.5 MG TAB PO PRN (09:07)
[2017-01-15] MEDS: PROPRANOLOL 10 MG TAB PO SCH (09:07)
[2017-01-15] MEDS: FOLIC ACID 1 MG TAB PO SCH (09:07)
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
[2017-01-15] MEDS: THIAMINE 100 MG TAB PO SCH (11:25)
== END 2017-01-15 13:45 | disposition home or self-care (01) | DRG 881 ==
LOC: 3MHU 16:19
PROVIDERS: ADMIT Psychiatry & Neurology Addiction Medicine; ATTEND Psychiatry & Neurology Addiction Medicine
DX: F32.9 Major depressive disorder, single episode, unspecified (principal); F11.20 Opioid dependence, uncomplicated; I10 Essential (primary) hypertension; F10.239 Alcohol dependence with withdrawal, unspecified; F16.90 Hallucinogen use, unspecified, uncomplicated; F43.10 Post-traumatic stress disorder, unspecified; G47.00 Insomnia, unspecified; B18.2 Chronic viral hepatitis C; F17.200 Nicotine dependence, unspecified, uncomplicated; T43.292A Poisoning by other antidepressants, intentional self-harm, initial encounter; T42.4X2A Poisoning by benzodiazepines, intentional self-harm, initial encounter; Z63.0 Problems in relationship with spouse or partner; Z79.899 Other long term (current) drug therapy; Y92.009 Unspecified place in unspecified non-institutional (private) residence as the place of occurrence of the external cause
CPT/HCPCS: 80053; 84443; 85025

== ENCOUNTER 2017-05-19 16:53 | Emergency (ER) | payer OTHER ==
[2017-05-19 17:14] VITALS: BP 143/97; PULSE 78; RESP 18; TEMP 98.5
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
--- NOTE | 2017-05-19 17:24 | XR ---
EXAMINATION TYPE: XR hand complete LT , 3 VIEWS DATE OF EXAM ORDERED: 05/19/2017 HISTORY: Pain. COMPARISON: None. FINDINGS: No fracture, dislocation or other acute osseous lesion is seen. IMPRESSION: NORMAL LEFT HAND.
== END 2017-05-19 17:52 | disposition home or self-care (01) ==
LOC: EC 16:53
DX: S63.613A Unspecified sprain of left middle finger, initial encounter (principal); S63.615A Unspecified sprain of left ring finger, initial encounter; I10 Essential (primary) hypertension; F17.200 Nicotine dependence, unspecified, uncomplicated; Z79.899 Other long term (current) drug therapy; V18.4XXA Pedal cycle driver injured in noncollision transport accident in traffic accident, initial encounter; Y93.55 Activity, bike riding; Y92.410 Unspecified street and highway as the place of occurrence of the external cause
CPT/HCPCS: 99283

== ENCOUNTER → 2017-09-29 | Outpatient (CLI) | payer OTHER ==
[2017-09-29 15:40] LABS: Partial Thromboplastin Time 25.1 sec (22.0-30.0); Prothrombin Time 10.3 sec (9.0-12.0)
[2017-09-29 15:45] LABS: ALT 54 U/L (9-52); AST 30 U/L (14-36); Albumin 3.8 g/dL (3.5-5.0); Alkaline Phosphatase 57 U/L (38-126); Anion Gap 9 mmol/L; Blood Urea Nitrogen 11 mg/dL (7-17); Calcium 9.2 mg/dL (8.4-10.2); Carbon Dioxide 27 mmol/L (22-30); Chloride 103 mmol/L (98-107); Glucose 121 mg/dL (74-99); Potassium 4.2 mmol/L (3.5-5.1); Sodium 139 mmol/L (137-145); Total Bilirubin 0.4 mg/dL (0.2-1.3); Total Protein 6.6 g/dL (6.3-8.2)
[2017-09-29 16:12] LABS: Basophils % (A) 0 %; Eosinophils # (A) 0.3 k/uL (0-0.7); Eosinophils % (A) 4 %; HCT 37.8 % (34.0-46.0); HGB 12.4 gm/dL (11.4-16.0); Lymphocytes # (A) 1.9 k/uL (1.0-4.8); Lymphocytes % (A) 23 %; MCH 29.9 pg (25.0-35.0); MCHC 32.7 g/dL (31.0-37.0); MCV 91.4 fL (80.0-100.0); Mean Platelet Volume 7.4; Monocytes # (A) 0.2 k/uL (0-1.0); Monocytes % (A) 3 %; Neutrophils # (A) 5.6 k/uL (1.3-7.7); Neutrophils % (A) 69 %; Platelet Count 289 k/uL (150-450); RBC 4.13 m/uL (3.80-5.40); WBC 8.1 k/uL (3.8-10.6)
[2017-09-29 20:23] LABS: HIV AB P24 Non-Reactive (Non-Reactive); HIV P24 AG Non-Reactive (Non-Reactive)
[2017-09-29 20:46] LABS: Hepatitis A Antibody IgM Non-Reactive (Non-Reactive)
== END | disposition home or self-care (01) ==
LOC: LABWHC1 14:57
PROVIDERS: ATTEND Internal Medicine Infectious Disease
DX: B18.2 Chronic viral hepatitis C (principal)
CPT/HCPCS: 36415; 80053; 85025; 85610; 85730; 86709; 87340; 87390; 87522; 87902

== ENCOUNTER → 2017-10-28 | Outpatient (CLI) | payer OTHER ==
--- NOTE | 2017-10-29 10:46 | MR ---
EXAMINATION TYPE: MR brain wo/w con DATE OF EXAM: 10/28/2017 COMPARISON: NONE HISTORY: Headache, dizziness TECHNIQUE: Multiplanar, multisequence images of the brain and brainstem is performed without and with IV contras t, utilizing 5.5 mL intravenous Gadavist . FINDINGS: Diffusion weighted images demonstrate no evidence of a recent infarct or other diffusion ab normality. Midline structures demonstrate normal morphology. The craniocervical junction appears within normal limits. Post contrast images demonstrate no abnormal enhancement. The dural venous sinuses appear pa tent. There are changes of chronic sinusitis. The globes are intact. WHITE MATTER: There is a single area of abnormal signal within the periatrial region on the right measuring approxi mately 9 x 2 mm. No enhancement. No additional white matter lesions are seen No callosal lesions. No lesions perpendicular to ventricular system. No enhancing lesions. IMPRESSION: 1. Single small focus of abnormal signal right periatrial region measuring 9 x 2 mm. No enhancement. Finding is nonspecific.
== END | disposition home or self-care (01) ==
LOC: RADMRIMAIN 21:12
PROVIDERS: ATTEND Psychiatry & Neurology Neurology
DX: R83.0 Abnormal level of enzymes in cerebrospinal fluid (principal); R51 Headache; R42 Dizziness and giddiness; R47.01 Aphasia
CPT/HCPCS: 70553; A9581

== ENCOUNTER 2017-11-22 15:01 | Emergency (ER) | payer OTHER ==
[2017-11-22 15:24] VITALS: RESP 16
--- NOTE | 2017-11-22 19:02 | ED ---
Female Urogenital HPI - General Chief complaint: Vaginal Bleeding Stated complaint: poss miscarriage Time Seen by Provider: 11/22/17 18:37 Source: patient, RN notes reviewed Mode of arrival: ambulatory Limitations: no limitations - History of Present Illness Initial comments: 37-year-old female presented emergency Department chief complaint of vaginal bleeding. Patient states that she recently found out she is . Patient states that she's had no care she is A0. She is concerned that she may be having a miscarriage she felt some abdominal cramping he had a large gush of blood this morning states the bleeding is actually following this time. Denies any nausea vomiting diarrhea constipation or dysuria no hematuria. - Related Data Home Medications Medication Instructions Recorded Confirmed Folic Acid 1 mg PO DAILY 01/10/17 11/22/17 Multivitamins, Thera [Multivitamin 1 tab PO DAILY 11/22/17 11/22/17 (formulary)] Propranolol [Inderal] 40 mg PO DAILY 11/22/17 11/22/17 Previous Rx's Medication Instructions Recorded Venlafaxine HCl ER [Effexor XR] 150 mg PO DAILY #15 cap 01/15/17 Allergies Allergy/AdvReac Type Severity Reaction Status Date / Time No Known Allergies Allergy Verified 11/22/17 18:53 Review of Systems ROS Statement: Those systems with pertinent positive or pertinent negative responses have been documented in the HPI. ROS Other: All systems not noted in ROS Statement are negative. Past Medical History Past Medical History: Hypertension Additional Past Medical History / Comment(s): HEPATITIS C, endometriosis, diverticulitis History of Any Multi-Drug Resistant Organisms: None Reported Past Surgical History: No Surgical Hx Reported Past Psychological History: Anxiety, Depression Smoking Status: Current every day smoker Past Alcohol Use History: None Reported, Occasional Past Drug Use History: Marijuana, Opiates, Prescription Drug Abuse - Past Family History Father History Unknown: Yes Additional Family Medical History / Comment(s): mental illness unspecified Mother History Unknown: Yes Additional Family Medical History / Comment(s): mental illness unspecified General Exam Limitations: no limitations General appearance: alert, in no apparent distress Head exam: Present: atraumatic, normocephalic, normal inspection Eye exam: Present: normal appearance, PERRL, EOMI. Absent: scleral icterus, conjunctival injection, periorbital swelling Respiratory exam: Present: normal lung sounds bilaterally. Absent: respiratory distress, wheezes, rales, rhonchi, stridor Cardiovascular Exam: Present: regular rate, normal rhythm, normal heart sounds. Absent: systolic murmur, diastolic murmur, rubs, gallop, clicks GI/Abdominal exam: Present: soft, normal bowel sounds. Absent: distended, tenderness, guarding, rebound, rigid Back exam: Absent: CVA tenderness (R), CVA tenderness (L) Skin exam: Present: warm, dry, intact, normal color. Absent: rash Course Vital Signs 11/22/17 15:22 Temperature 97.6 F Pulse Rate 76 Respiratory 16 Rate Blood Pressure 132/87 O2 Sat by Pulse 99 Oximetry Medical Decision Making - Medical Decision Making 37-year-old female presented emergency department for possible miscarriage. There is no IUP seen on. PATIENT'S BETA QUANT IS 2625. IS CONCERNING FOR MISCARRIAGE. PATIENT DIAGNOSED WITH THREATENED MISCARRIAGE SHE'LL HAVE TO HAVE REPEAT HCG IN 2 DAYS AND REPEAT ULTRASOUND. RETURN PARAMETERS WERE DISCUSSED. PATIENT HAS a positive does not require broke him. - Lab Data Result diagrams: 11/22/17 20:16 11/22/17 20:16 Lab Results 11/22/17 11/22/17 11/22/17 Range/Units 19:30 20:16 20:16 WBC 9.6 (3.8-10.6) k/uL RBC 4.74 (3.80-5.40) m/uL Hgb 13.9 (11.4-16.0) gm/dL Hct 41.1 (34.0-46.0) % MCV 86.7 (80.0-100.0) fL MCH 29.3 (25.0-35.0) pg MCHC 33.9 (31.0-37.0) g/dL RDW 11.9 (11.5-15.5) % Plt Count 406 (150-450) k/uL Neutrophils % 61 % Lymphocytes % 27 % Monocytes % 5 % Eosinophils % 4 % Basophils % 1 % Neutrophils # 5.9 (1.3-7.7) k/uL Lymphocytes # 2.6 (1.0-4.8) k/uL Monocytes # 0.4 (0-1.0) k/uL Eosinophils # 0.4 (0-0.7) k/uL Basophils # 0.1 (0-0.2) k/uL Sodium 143 (137-145) mmol/L Potassium 3.8 (3.5-5.1) mmol/L Chloride 102 (98-107) mmol/L Carbon Dioxide 24 (22-30) mmol/L Anion Gap 17 mmol/L BUN 14 (7-17) mg/dL Creatinine 0.50 L (0.52-1.04) mg/dL Est GFR (CKD-EPI)AfAm >90 (>60 ml/min/1.73 sqM) Est GFR (CKD-EPI)NonAf >90 (>60 ml/min/1.73 sqM) Glucose 124 H (74-99) mg/dL Calcium 9.5 (8.4-10.2) mg/dL HCG, Quant 2654.4 mIU/mL Urine Color Colorless Urine Appearance Clear (Clear) Urine pH 6.5 (5.0-8.0) Ur Specific [place] 1.005 (1.001-1.035) Urine Protein Negative (Negative) Urine Glucose (UA) Negative (Negative) Urine Ketones Negative (Negative) Urine Blood Moderate H (Negative) Urine Nitrite Negative (Negative) Urine Bilirubin Negative (Negative) Urine Urobilinogen <2.0 (<2.0) mg/dL Ur Leukocyte Esterase Trace H (Negative) Urine RBC 1 (0-5) /hpf Urine WBC 3 (0-5) /hpf Ur Squamous Epith Cells 1 (0-4) /hpf Urine Bacteria Rare H (None) /hpf Urine Mucus Rare H (None) /hpf Blood Type Blood Type Recheck 11/22/17 Range/Units 20:16 WBC (3.8-10.6) k/uL RBC (3.80-5.40) m/uL Hgb (11.4-16.0) gm/dL Hct (34.0-46.0) % MCV (80.0-100.0) fL MCH (25.0-35.0) pg MCHC (31.0-37.0) g/dL RDW (11.5-15.5) % Plt Count (150-450) k/uL Neutrophils % % Lymphocytes % % Monocytes % % Eosinophils % % Basophils % % Neutrophils # (1.3-7.7) k/uL Lymphocytes # (1.0-4.8) k/uL Monocytes # (0-1.0) k/uL Eosinophils # (0-0.7) k/uL Basophils # (0-0.2) k/uL Sodium (137-145) mmol/L Potassium (3.5-5.1) mmol/L Chloride (98-107) mmol/L Carbon Dioxide (22-30) mmol/L Anion Gap mmol/L BUN (7-17) mg/dL Creatinine (0.52-1.04) mg/dL Est GFR (CKD-EPI)AfAm (>60 ml/min/1.73 sqM) Est GFR (CKD-EPI)NonAf (>60 ml/min/1.73 sqM) Glucose (74-99) mg/dL Calcium (8.4-10.2) mg/dL HCG, Quant mIU/mL Urine Color Urine Appearance (Clear) Urine pH (5.0-8.0) Ur Specific [place] (1.001-1.035) Urine Protein (Negative) Urine Glucose (UA) (Negative) Urine Ketones (Negative) Urine Blood (Negative) Urine Nitrite (Negative) Urine Bilirubin (Negative) Urine Urobilinogen (<2.0) mg/dL Ur Leukocyte Esterase (Negative) Urine RBC (0-5) /hpf Urine WBC (0-5) /hpf Ur Squamous Epith Cells (0-4) /hpf Urine Bacteria (None) /hpf Urine Mucus (None) /hpf Blood Type A Positive Blood Type Recheck No Disposition Clinical Impression: Threatened miscarriage Disposition: HOME SELF-CARE Condition: Stable Instructions: Threatened Miscarriage (ED) Additional Instructions: Please return to the Emergency Department if symptoms worsen or any other concerns. Referrals: Donna Anglin MD [Primary Care Provider] - 1-2 days Time of Disposition: 21:21
[2017-11-22 19:44] LABS: Appearance,Urine Clear (Clear); Bacteria,Urine Rare /hpf; Bilirubin,Urine Negative (Negative); Blood,Urine Moderate (Negative); Color,Urine Colorless; Glucose,Urine (UA) Negative (Negative); Ketones,Urine Negative (Negative); Leukocyte Esterase,Urine Trace (Negative); Mucus,Urine Rare /hpf; Nitrite,Urine Negative (Negative); PH, Urine 6.5 (5.0-8.0); Protein,Urine Negative (Negative); RBC,Urine 1 /hpf (0-5); Specific Gravity,Urine 1.005 (1.001-1.035); Squamous Epithelial Cell,Urine 1 /hpf (0-4); Urobilinogen,Urine <2.0 mg/dL (<2.0); WBC,Urine 3 /hpf (0-5)
[2017-11-22 20:35] LABS: Basophils # (A) 0.1 k/uL (0-0.2); Basophils % (A) 1 %; Eosinophils # (A) 0.4 k/uL (0-0.7); Eosinophils % (A) 4 %; HCT 41.1 % (34.0-46.0); HGB 13.9 gm/dL (11.4-16.0); Lymphocytes # (A) 2.6 k/uL (1.0-4.8); Lymphocytes % (A) 27 %; MCH 29.3 pg (25.0-35.0); MCHC 33.9 g/dL (31.0-37.0); MCV 86.7 fL (80.0-100.0); Mean Platelet Volume 6.8; Monocytes # (A) 0.4 k/uL (0-1.0); Monocytes % (A) 5 %; Neutrophils # (A) 5.9 k/uL (1.3-7.7); Neutrophils % (A) 61 %; Platelet Count 406 k/uL (150-450); RBC 4.74 m/uL (3.80-5.40); RDW 11.9 % (11.5-15.5); WBC 9.6 k/uL (3.8-10.6)
[2017-11-22 20:47] LABS: Anion Gap 17 mmol/L; Blood Urea Nitrogen 14 mg/dL (7-17); Calcium 9.5 mg/dL (8.4-10.2); Carbon Dioxide 24 mmol/L (22-30); Chloride 102 mmol/L (98-107); Glucose 124 mg/dL (74-99); Potassium 3.8 mmol/L (3.5-5.1); Sodium 143 mmol/L (137-145)
[2017-11-22 21:04] LABS: HCG,Quantitative Serum 2654.4 mIU/mL
--- NOTE | 2017-11-22 21:16 | US ---
EXAMINATION TYPE: Transabdominal DATE OF EXAM: 11/15/17 COMPARISON: NONE CLINICAL HISTORY: Pain. Cramping and bleeding. EXAM PERFORMED: Transabdominal (TA) EXAM MEASUREMENTS: GESTATIONAL AGE / DATING Physician Established: Not yet established ) Dates by LMP: LMP unknown Dates by First Scan: No previous this is first scan Dates by Current Scan for: No IUP seen at this time ) MATERNAL ANATOMY Uterus: 9.7 x 4.0 x 5.5 cm Right Ovary: 2.5 x 2.8 x 2.8 cm Left Ovary: 3.1 x 1.9 x 2.2 cm Post CDS / Adnexa: wnl Presence of free fluid: no Presence of corpus luteal cyst: no GESTATION / SURVEY IUP: No IUP seen at this time Beta HcG (if available): Not available at this time No IUP seen at this time. IMPRESSION: Uterus is empty. No adnexal mass or free fluid.
[2017-11-22 21:26] VITALS: BP 120/70; PULSE 72; TEMP 97
== END 2017-11-22 21:50 | disposition home or self-care (01) ==
LOC: EC 15:01
DX: O20.0 Threatened abortion (principal); O99.411 Diseases of the circulatory system complicating pregnancy, first trimester; I10 Essential (primary) hypertension; O99.331 Smoking (tobacco) complicating pregnancy, first trimester; F17.200 Nicotine dependence, unspecified, uncomplicated; Z3A.01 Less than 8 weeks gestation of pregnancy; Z86.19 Personal history of other infectious and parasitic diseases; Z79.899 Other long term (current) drug therapy
CPT/HCPCS: 36415; 76801; 80048; 81001; 84702; 85025; 86900; 86901; 99284

== ENCOUNTER 2018-07-13 11:21 | Emergency (ER) | payer OTHER ==
[2018-07-13 11:28] VITALS: PULSE 77; RESP 18; TEMP 98.5
[2018-07-13] MEDS ORDERED: SODIUM CHLORIDE 0.9% 1,000 ML IV STA ×2 (12:13)
[2018-07-13] MEDS ORDERED: METOCLOPRAMIDE 5 MG/ML 2 ML VIAL IVP STA (12:13)
--- NOTE | 2018-07-13 12:14 | ED ---
Nausea/Vomiting/Diarrhea HPI - General Chief complaint: Nausea/Vomiting/Diarrhea Stated complaint: diarrhea, 29wks preg Time Seen by Provider: 07/13/18 12:05 Source: patient, RN notes reviewed, old records reviewed Mode of arrival: ambulatory - History of Present Illness Initial comments: This Patient is a 29-year-old female presents emergency department today with chief complaint of nausea and vomiting diarrhea for the past 3 days. She is currently 30 weeks . Patient states that she was sent in by her PCP and [employer] Dr. Quintanilla. This is at her . She had a previous miscarriage in November of this year. Patient states that she has been started on blood pressure medication by her [employer] SUPER[employer]OR. She reports her blood pressures have been normal for the past week. Patient states that she has not been able to hold any food down. She denies any chest pain, shortness of breath. She denies any abdominal pain. Patient reports that she's had 7 episodes of watery diarrhea. No blood in her diarrhea. - Related Data Home Medications Medication Instructions Recorded Confirmed Nyn-Fkrh-Eaoni Acid 1 cap PO DAILY 07/13/18 07/13/18 [-U Capsule (formulary)] Propranolol [Inderal] 20 mg PO BID 07/13/18 07/13/18 Previous Rx's Medication Instructions Recorded Venlafaxine HCl ER [Effexor XR] 150 mg PO DAILY #15 cap 01/15/17 Cephalexin [Keflex] 500 mg PO Q8HR #21 cap 07/13/18 Metoclopramide [Reglan] 10 mg PO ACHS #15 tab 07/13/18 Allergies Allergy/AdvReac Type Severity Reaction Status Date / Time No Known Allergies Allergy Verified 11/22/17 18:53 Review of Systems ROS Statement: Those systems with pertinent positive or pertinent negative responses have been documented in the HPI. ROS Other: All systems not noted in ROS Statement are negative. Past Medical History Past Medical History: Hypertension Additional Past Medical History / Comment(s): HEPATITIS C, endometriosis, diverticulitis History of Any Multi-Drug Resistant Organisms: None Reported Past Surgical History: No Surgical Hx Reported Past Psychological History: Anxiety, Depression Smoking Status: Former smoker Past Alcohol Use History: None Reported, Occasional Past Drug Use History: None Reported, Opiates, Prescription Drug Abuse - Past Family History Father History Unknown: Yes Additional Family Medical History / Comment(s): mental illness unspecified Mother History Unknown: Yes Additional Family Medical History / Comment(s): mental illness unspecified General Exam - General Exam Comments Initial Comments: 29-year-old female. Alert and oriented. General appearance: alert, in no apparent distress Head exam: Present: atraumatic, normocephalic, normal inspection Eye exam: Present: normal appearance, PERRL, EOMI. Absent: scleral icterus, conjunctival injection, periorbital swelling ENT exam: Present: normal exam, mucous membranes moist Neck exam: Present: normal inspection. Absent: tenderness, meningismus, lymphadenopathy Respiratory exam: Present: normal lung sounds bilaterally. Absent: respiratory distress, wheezes, rales, rhonchi, stridor Cardiovascular Exam: Present: regular rate, normal rhythm, normal heart sounds. Absent: systolic murmur, diastolic murmur, rubs, gallop, clicks GI/Abdominal exam: Present: soft, normal bowel sounds, other (protruberant abdomne consistent with 30 weeks gestation). Absent: distended, tenderness, guarding, rebound, rigid Extremities exam: Present: normal inspection, full ROM, normal capillary refill. Absent: tenderness, pedal edema, joint swelling, calf tenderness Back exam: Present: normal inspection Neurological exam: Present: alert, oriented X3, CN II-XII intact Psychiatric exam: Present: normal affect, normal mood Skin exam: Present: warm, dry, intact, normal color. Absent: rash Course Vital Signs 07/13/18 11:24 Temperature 98.5 F Pulse Rate 77 Respiratory 18 Rate Blood Pressure 150/106 O2 Sat by Pulse 100 Oximetry - Reevaluation(s) Reevaluation #1: 07/13/18 12:29 heart tones were obtained by me at this time. 1 44 bpm. Medical Decision Making - Medical Decision Making 37-year-old, female, 30 weeks presents emergency room to 3 days of nausea vomiting and diarrhea. No bloody stools. No vaginal bleeding or discharge. She denies abdominal pain. At this time Patient is given 2 L bolus , labwork obtained. Labwork was reviewed and unremarkable. He shouldn't does take medication for blood pressure. Blood pressure and emergency room is 130/ 92. She has no leg swelling or edema. Urinalysis was negative for protein. She does have some bacteria in her urine. We'll treat the Patient and send recent hematocrit bacteria with Keflex. Discussed following up with primary care physician. QUESTIONS answered. heart tones were pressure myself at 1 44 bpm. - Lab Data Result diagrams: 07/13/18 12:08 07/13/18 12:08 Lab Results 07/13/18 07/13/18 07/13/18 Range/Units 12:08 12:08 13:30 WBC 10.4 (3.8-10.6) k/uL RBC 4.73 (3.80-5.40) m/uL Hgb 14.5 (11.4-16.0) gm/dL Hct 41.3 (34.0-46.0) % MCV 87.3 (80.0-100.0) fL MCH 30.7 (25.0-35.0) pg MCHC 35.2 (31.0-37.0) g/dL RDW 12.8 (11.5-15.5) % Plt Count 303 (150-450) k/uL Neutrophils % 83 % Lymphocytes % 11 % Monocytes % 4 % Eosinophils % 1 % Basophils % 0 % Neutrophils # 8.7 H (1.3-7.7) k/uL Lymphocytes # 1.2 (1.0-4.8) k/uL Monocytes # 0.4 (0-1.0) k/uL Eosinophils # 0.1 (0-0.7) k/uL Basophils # 0.0 (0-0.2) k/uL Sodium 134 L (137-145) mmol/L Potassium 4.0 (3.5-5.1) mmol/L Chloride 100 (98-107) mmol/L Carbon Dioxide 24 (22-30) mmol/L Anion Gap 10 mmol/L BUN 9 (7-17) mg/dL Creatinine 0.72 (0.52-1.04) mg/dL Est GFR (CKD-EPI)AfAm >90 (>60 ml/min/1.73 sqM) Est GFR (CKD-EPI)NonAf >90 (>60 ml/min/1.73 sqM) Glucose 110 H (74-99) mg/dL Calcium 9.5 (8.4-10.2) mg/dL Total Bilirubin 0.5 (0.2-1.3) mg/dL AST 31 (14-36) U/L ALT 32 (9-52) U/L Alkaline Phosphatase 98 (38-126) U/L Total Protein 7.3 (6.3-8.2) g/dL Albumin 3.8 (3.5-5.0) g/dL Amylase 58 (30-110) U/L Lipase 56 (23-300) U/L Urine Color Yellow Urine Appearance Cloudy H (Clear) Urine pH 6.0 (5.0-8.0) Ur Specific [place] 1.014 (1.001-1.035) Urine Protein Trace H (Negative) Urine Glucose (UA) Negative (Negative) Urine Ketones Negative (Negative) Urine Blood Negative (Negative) Urine Nitrite Negative (Negative) Urine Bilirubin Negative (Negative) Urine Urobilinogen <2.0 (<2.0) mg/dL Ur Leukocyte Esterase Negative (Negative) Urine WBC 4 (0-5) /hpf Ur Squamous Epith Cells 9 H (0-4) /hpf Amorphous Sediment Rare H (None) /hpf Urine Bacteria Few H (None) /hpf Urine Mucus Occasional H (None) /hpf Disposition Clinical Impression: Asymptomatic bacteriuria during , Gastroenteritis Disposition: HOME SELF-CARE Condition: Good Instructions: Acute Nausea and Vomiting (ED) Additional Instructions: Patient is to rest, remain hydrated. Use the nausea medicine as prescribed. Take the medication as prescribed for bacteria. Follow-up with [employer] and primary care physician. Prescriptions: Cephalexin [Keflex] 500 mg PO Q8HR #21 cap Metoclopramide [Reglan] 10 mg PO ACHS #15 tab Is patient prescribed a controlled substance at d/c from ED?: No Referrals: Priya Goldsmith MD [Primary Care Provider] - 1-2 days Glenda Quintanilla DO [Doctor of Osteopathic Medicine] - 1-2 days Time of Disposition: 14:28
[2018-07-13 12:43] LABS: Basophils % (A) 0 %; Eosinophils # (A) 0.1 k/uL (0-0.7); Eosinophils % (A) 1 %; HCT 41.3 % (34.0-46.0); HGB 14.5 gm/dL (11.4-16.0); Lymphocytes # (A) 1.2 k/uL (1.0-4.8); Lymphocytes % (A) 11 %; MCH 30.7 pg (25.0-35.0); MCHC 35.2 g/dL (31.0-37.0); MCV 87.3 fL (80.0-100.0); Monocytes # (A) 0.4 k/uL (0-1.0); Monocytes % (A) 4 %; Neutrophils # (A) 8.7 k/uL (1.3-7.7); Neutrophils % (A) 83 %; Platelet Count 303 k/uL (150-450); RBC 4.73 m/uL (3.80-5.40); RDW 12.8 % (11.5-15.5); WBC 10.4 k/uL (3.8-10.6)
[2018-07-13 13:07] LABS: ALT 32 U/L (9-52); AST 31 U/L (14-36); Albumin 3.8 g/dL (3.5-5.0); Alkaline Phosphatase 98 U/L (38-126); Amylase 58 U/L (30-110); Anion Gap 10 mmol/L; Blood Urea Nitrogen 9 mg/dL (7-17); Calcium 9.5 mg/dL (8.4-10.2); Carbon Dioxide 24 mmol/L (22-30); Chloride 100 mmol/L (98-107); Glucose 110 mg/dL (74-99); Lipase 56 U/L (23-300); Sodium 134 mmol/L (137-145); Total Bilirubin 0.5 mg/dL (0.2-1.3); Total Protein 7.3 g/dL (6.3-8.2)
[2018-07-13] MEDS ORDERED: SODIUM CHLORIDE 0.9% 1,000 ML IV ONE (13:28)
[2018-07-13 14:01] LABS: Amorphous Sediment,Urine Rare /hpf; Appearance,Urine Cloudy (Clear); Bacteria,Urine Few /hpf; Bilirubin,Urine Negative (Negative); Blood,Urine Negative (Negative); Color,Urine Yellow; Glucose,Urine (UA) Negative (Negative); Ketones,Urine Negative (Negative); Leukocyte Esterase,Urine Negative (Negative); Mucus,Urine Occasional /hpf; Nitrite,Urine Negative (Negative); Protein,Urine Trace (Negative); Specific Gravity,Urine 1.014 (1.001-1.035); Squamous Epithelial Cell,Urine 9 /hpf (0-4); Urobilinogen,Urine <2.0 mg/dL (<2.0)
[2018-07-13 15:33] VITALS: BP 130/89
== END 2018-07-13 15:34 | disposition home or self-care (01) ==
LOC: EC 11:21
DX: O99.613 Diseases of the digestive system complicating pregnancy, third trimester (principal); K52.9 Noninfective gastroenteritis and colitis, unspecified; O99.89 Other specified diseases and conditions complicating pregnancy, childbirth and the puerperium; R82.71 Bacteriuria; O10.913 Unspecified pre-existing hypertension complicating pregnancy, third trimester; Z87.891 Personal history of nicotine dependence; Z79.899 Other long term (current) drug therapy; Z3A.30 30 weeks gestation of pregnancy
CPT/HCPCS: 36415; 80053; 81001; 82150; 83690; 85025; 96361; 96374; 99284

== ENCOUNTER 2018-07-27 12:00 | Outpatient (CLI) | payer OTHER ==
[2018-07-27] MEDS ORDERED: PROMETHAZINE SUPPOSITORY 25 MG SUPP RECTAL STA (12:33)
[2018-07-27] MEDS ORDERED: ONDANSETRON 4 MG/2 ML VIAL IVP STA (12:34)
[2018-07-27] MEDS: LACTATED RINGERS 1,000 ML IV SCH ×2 (12:54→14:03)
[2018-07-27 13:09] LABS: Basophils % (A) 0 %; Eosinophils # (A) 0.2 k/uL (0-0.7); Eosinophils % (A) 1 %; HCT 46.8 % (34.0-46.0); HGB 15.1 gm/dL (11.4-16.0); Lymphocytes # (A) 1.8 k/uL (1.0-4.8); Lymphocytes % (A) 11 %; MCHC 32.3 g/dL (31.0-37.0); MCV 89.5 fL (80.0-100.0); Mean Platelet Volume 8.1; Monocytes # (A) 0.5 k/uL (0-1.0); Monocytes % (A) 3 %; Neutrophils # (A) 14.4 k/uL (1.3-7.7); Neutrophils % (A) 85 %; Platelet Count 279 k/uL (150-450); RBC 5.23 m/uL (3.80-5.40); RDW 13.4 % (11.5-15.5)
[2018-07-27 13:34] LABS: ALT 35 U/L (9-52); AST 34 U/L (14-36); Blood Urea Nitrogen 10 mg/dL (7-17); LDH 517 U/L (313-618); Uric Acid 6.4 mg/dL (3.7-7.4)
[2018-07-27 13:49] LABS: Appearance,Urine Cloudy (Clear); Bacteria,Urine Occasional /hpf; Bilirubin,Urine Negative (Negative); Blood,Urine Negative (Negative); Color,Urine Yellow; Glucose,Urine (UA) Negative (Negative); Ketones,Urine Negative (Negative); Leukocyte Esterase,Urine Negative (Negative); Mucus,Urine Rare /hpf; Nitrite,Urine Negative (Negative); Protein,Urine 1+ (Negative); Specific Gravity,Urine 1.018 (1.001-1.035); Squamous Epithelial Cell,Urine 10 /hpf (0-4); Urobilinogen,Urine <2.0 mg/dL (<2.0); WBC,Urine 1 /hpf (0-5)
[2018-07-27] MEDS: hydrALAZINE HCL 20 MG/ML 1 ML VIAL IVP STA ×2 (14:05→14:36)
[2018-07-27] MEDS ORDERED: BETAMET ACET-BETAMETH SOD PHOS 6 MG/ML VIAL IM SCH (14:15)
[2018-07-27] MEDS ORDERED: MAGNESIUM SULFATE GM 6 GM in SODIUM CHLORIDE 0.9% 50 ML IVPB ONE (14:31)
[2018-07-27] MEDS ORDERED: CALCIUM CHLORIDE 500 MG in SODIUM CHLORIDE 0.9% 50 ML IVPB ONE (14:31)
[2018-07-27] MEDS ORDERED: CALCIUM GLUCONATE 100 MG/ML 10 ML VIAL IV PRN (14:40)
--- NOTE | 2018-07-27 14:41 | P.HPOB ---
History of Present Illness H&P Date: 07/27/18 Chief Complaint: IUP at 31 6/7 weeks, preeclampsia with severe features This is a very pleasant 37-year-old 2 para 0010 at 31 and 6/sevenths weeks with an estimated due date of 09/22/2018 based on last menstrual period= 10 weeks US. Patient presented to the office today with complaints of nausea and vomiting and stated her has been ill. Patient was sent to labor and delivery for IV hydration to which her blood pressures were noted to be elevated 160/107 to 175/110. IV hydration was begun along with treatment of her nausea with zofran. Her BPs remained elevated 150s to 160s over low 100s. Patient denies headache but does note some right upper quadrant/ epigastric pain. 5 mg of hydralazine were given and patient's blood pressure did respond to 150s/90s. Given her blood pressures I did discuss [facility] the need for transfer secondary to gestational age and preeclampsia with severe features. They did accept the transfer. Patient has had routine care with myself since 10 weeks of gestation. Patient has a known history of MTHFR for which she was taking Folgard and baby aspirin 81 mg. She does have history of anxiety for which she was taking Effexor and propranolol. She states she ran out of propranolol recently. She does have a history of hep C and elevated antibodies were noted. Throughout the IUGR/ single umbilical artery were noted and she has been being followed closely for this as well. Estimated weight noted to be less than the 3rd percentile amniotic fluid index was always noted to be normal in her last S/D ratio was noted to be 25th percentile. On blood work a blood type of A+ was noted, rubella immune, RPR nonreactive, hepatitis B surface antigen negative, HIV negative, hepatitis C antibodies were positive as stated above. Review of Systems Constitutional: Reports fatigue, Reports sweats, Denies chills, Denies fever Ears, nose, mouth and throat: Denies headache Cardiovascular: Reports leg edema Respiratory: Denies cough, Denies dyspnea Gastrointestinal: Reports nausea, Reports vomiting, Denies constipation, Denies diarrhea Genitourinary: Reports Past Medical History Past Medical History: Hypertension Additional Past Medical History / Comment(s): HEPATITIS C, endometriosis, diverticulitis History of Any Multi-Drug Resistant Organisms: None Reported Past Surgical History: No Surgical Hx Reported Smoking Status: Former smoker - Past Family History Father History Unknown: Yes Additional Family Medical History / Comment(s): mental illness unspecified Mother History Unknown: Yes Additional Family Medical History / Comment(s): mental illness unspecified Medications and Allergies Home Medications Medication Instructions Recorded Confirmed Type Venlafaxine HCl ER [Effexor XR] 150 mg PO DAILY #15 cap 01/15/17 07/27/18 Rx Cephalexin [Keflex] 500 mg PO Q8HR #21 cap 07/13/18 Rx Metoclopramide [Reglan] 10 mg PO ACHS #15 tab 07/13/18 Rx Fyp-Jhpu-Rusrz Acid 1 cap PO DAILY 07/13/18 07/27/18 History [-U Capsule (formulary)] Propranolol [Inderal] 20 mg PO BID 07/13/18 07/27/18 History Aspirin 81 mg PO DAILY 07/27/18 07/27/18 History Allergies Allergy/AdvReac Type Severity Reaction Status Date / Time No Known Allergies Allergy Verified 07/27/18 12:30 Exam Osteopathic Statement: *. No significant issues noted on an osteopathic structural exam other than those noted in the History and Physical/Consult. Intake and Output 07/26/18 07/27/18 07/27/18 22:59 06:59 14:59 Other: Weight 72.575 kg Targeted physical exam was performed on this patient in general this is a well- developed well-nourished alert female visibly upset given her elevated blood pressures and need for transfer, heart is known to have regular rate and rhythm , lungs are clear to auscultation bilaterally, abdomen is noted to be gravid and appropriate for just only occasional age, heart tones are reactive no contractions were noted cervical exam was deferred at this time. Results Result Diagrams: 07/27/18 12:50 07/27/18 12:50 Abnormal Lab Results - Last 24 Hours (Table) 07/27/18 07/27/18 Range/Units 12:50 13:12 WBC 17.0 H (3.8-10.6) k/uL Hct 46.8 H (34.0-46.0) % Neutrophils # 14.4 H (1.3-7.7) k/uL Urine Appearance Cloudy H (Clear) Urine Protein 1+ H (Negative) Ur Squamous Epith Cells 10 H (0-4) /hpf Urine Bacteria Occasional H (None) /hpf Urine Mucus Rare H (None) /hpf Assessment and Plan (1) 31 to 32 weeks gestation of Current Visit: Yes Status: Acute Code(s): UFK8726 - SNOMED Code(s): 948522819 (2) Preeclampsia Current Visit: Yes Status: Acute Code(s): O14.90 - UNSPECIFIED PRE-ECLAMPSIA , UNSPECIFIED TRIMESTER SNOMED Code(s): 562027078 (3) Hepatitis C Current Visit: Yes Status: Acute Code(s): B19.20 - UNSPECIFIED VIRAL HEPATITIS C WITHOUT HEPATIC COMA SNOMED Code(s): 68528833 (4) MTHFR gene mutation Current Visit: Yes Status: Acute Code(s): E72.12 - METHYLENETETRAHYDROFOLATE REDUCTASE DEFICIENCY SNOMED Code(s): 45758627 (5) AMA (advanced maternal age) primigravida 35+ Current Visit: Yes Status: Acute Code(s): O09.519 - SUPERVISION OF ELDERLY PRIMIGRAVIDA, UNSPECIFIED TRIMESTER SNOMED Code(s): 09053517 (6) Anxiety Current Visit: Yes Status: Acute Code(s): F41.9 - ANXIETY DISORDER, UNSPECIFIED SNOMED Code(s): 09422501 Plan: Magnesium GTT is begun with a 6 g bolus then a maintence of 2 gm. Beta Methasone is given in addition. Patient is informed about the need for transfer given gestational age and her elevated blood pressures. Patient states understanding of the need for transfer. Risks of prematurity are briefly discussed with the patient but given her elevated blood pressure she warrants transfer. Transferring facility is willing to accept this patient.
[2018-07-27] MEDS ORDERED: MAGNESIUM SULFATE-WATER PMX 20 GM in WATER FOR INJECTION 1 500ML.BAG IV SCH (14:45)
== END 2018-07-27 15:30 ==
LOC: FBPOP 12:00
PROVIDERS: ATTEND Obstetrics & Gynecology Obstetrics
DX: O14.93 Unspecified pre-eclampsia, third trimester (principal); O09.513 Supervision of elderly primigravida, third trimester; O98.413 Viral hepatitis complicating pregnancy, third trimester; B19.20 Unspecified viral hepatitis C without hepatic coma; O99.340 Other mental disorders complicating pregnancy, unspecified trimester; F41.9 Anxiety disorder, unspecified; O99.283 Endocrine, nutritional and metabolic diseases complicating pregnancy, third trimester; E72.12 Methylenetetrahydrofolate reductase deficiency; Z3A.32 32 weeks gestation of pregnancy; Z79.899 Other long term (current) drug therapy; Z79.82 Long term (current) use of aspirin
CPT/HCPCS: 59025; 96376; 96361; 96365; 96366; 96372; 96375; 82565; 83615; 84450; 84460; 84520; 84550; 85025; 81001; J0360; J0702; J2405; J3475 ×2

== ENCOUNTER → 2022-03-11 | Outpatient (CLI) | payer OTHER ==
--- NOTE | 2022-03-11 17:47 | P.SLEEP ---
History of Present Illness DATE: 03/11/2022 CONSULTATION/NEW PATIENT EVALUATION HISTORY OF PRESENT ILLNESS/SLEEP-WAKE EVALUATION: 41 year old lady had been evaluated in the sleep center for possible obstructive sleep apnea hypopnea syndrome. SLEEP SCHEDULE: Usually sleep schedule 10 PM to 6 AM 7 days a week. FALLING ASLEEP: No problems with falling asleep, although patient has TV set in bedroom. DURING SLEEP: Patient snores, wakes up from sleep up to 5 times with gasping for air leg movements. 3 episodes of nocturia at nighttime. No history of hypnogogical hallucinations, sleep paralysis, or cataplexy. DURING THE DAY/WAKE STATE: In the morning patient wake up tired, has difficulties to pay attention, falling asleep during the day. She has problems with concentration, irritability and anxiety. Savannah sleepiness scale is 9. Patient take nap around 1 PM. PAST MEDICAL HISTORY: Hypertension, depression, recent foot fracture. PAST SURGICAL HISTORY: , recent fifth metatarsal fracture. MEDICATIONS: Effexor 100 mg once a day, propranolol 20 mg twice a day. SOCIAL HISTORY: Negative for smoking, alcohol consumption none at the present time. FAMILY HISTORY: Hypertension, heart problems, asthma. REVIEW OF SYSTEMS: Snoring, multiple awakenings from sleep. No fevers. No double vision. No recent chest pain. No shortness of breath. No abdominal pain. No bleeding episodes. No blood in urine. No seizure episodes. PHYSICAL EXAMINATION: GENERAL: A pleasant patient without any distress. VITAL SIGNS: BP 124/87 , HR 69 , RR 14 , weight 131.6 pounds, height 5 foot 2- 1/2 inches, body mass index 23.5 . HEENT: PERRLA, EOMI. Evaluation of oropharynx showed tongue protrudes midline, low position of soft palate Mallampati4. NECK: Supple. No JVD. Thyroid is not palpable. 12-3/4 inches in circumference. LUNGS: Clear to percussion and to auscultation. Good air exchange. No wheezing or rhonchi. HEART: S1, S2 regular. No murmurs, gallops or rubs. ABDOMEN: Soft and nontender. Bowel sounds are present. No organomegaly appreciated. EXTREMITIES: No clubbing or cyanosis. MARKETING PROGRAM COORDINATOR: Awake, alert, and oriented x3. Cranial nerves 2 to 7 intact. There is no fasciculation or atrophy noted. No focal deficits observed. ASSESSMENT: 1. Snoring, multiple awakenings from sleep, extremely low position of soft palate Mallampati 4. Obstructive sleep apnea-hypopnea syndrome. 2. Hypertension. 3 depression. 4. Status post a recent fifth metatarsal fracture. 5 status post nasal fracture 4 years ago. 6. Status post . PLAN: 1. Polysomnography for evaluation of patient's breathing during sleep. 2. CPAP/BiPAP titration if sleep study confirms obstructive sleep apnea- hypopnea syndrome. 3. Preferable position during sleep on the side. 4. No driving if patient feels any sleepiness. Patient is aware of civil and criminal liability for unsafe driving. 5. Sleep hygiene with regular sleep time for at least 7.5-8 hours. 6. Watching weight. Thank you very much for referring this patient for consultation. Sincerely, Win Jackson MD, PhD, FAASM. Diplomat of [place] [employer], Sleep Medicine Board by [place] [employer] [employer] [facility] [place] Past Medical History Past Medical History: Hypertension Additional Past Medical History / Comment(s): HEPATITIS C, endometriosis,diverticulitis History of Any Multi-Drug Resistant Organisms: None Reported Past Surgical History: No Surgical Hx Reported Past Psychological History: Anxiety, Depression Past Alcohol Use History: None Reported, Occasional Past Drug Use History: None Reported, Opiates, Prescription Drug Abuse - Past Family History Father History Unknown: Yes Additional Family Medical History / Comment(s): mental illness unspecified Mother History Unknown: Yes Additional Family Medical History / Comment(s): mental illness unspecified Medications and Allergies Home Medications Medication Instructions Recorded Confirmed Type Venlafaxine HCl ER [Effexor XR] 150 mg PO DAILY #15 cap 01/15/17 07/27/18 Rx Cephalexin [Keflex] 500 mg PO Q8HR #21 cap 07/13/18 Rx Metoclopramide [Reglan] 10 mg PO ACHS #15 tab 07/13/18 Rx Mow-Hmbj-Vemwz Acid 1 cap PO DAILY 07/13/18 07/27/18 History [-U Capsule (formulary)] Propranolol [Inderal] 20 mg PO BID 07/13/18 07/27/18 History Aspirin 81 mg PO DAILY 07/27/18 07/27/18 History Allergies Allergy/AdvReac Type Severity Reaction Status Date / Time No Known Allergies Allergy Verified 07/27/18 12:30 Sleep Note - Sleep Note Sleep Note: Temperature: Pulse Rate: Respiratory Rate: Blood Pressure: SpO2: Height: Weight: BMI: Neck Circumference:
== END ==
LOC: SLEEP 14:56
PROVIDERS: ATTEND Internal Medicine
DX: G47.33 Obstructive sleep apnea (adult) (pediatric) (principal); I10 Essential (primary) hypertension; F32.A Depression, unspecified; Z87.59 Personal history of other complications of pregnancy, childbirth and the puerperium; Z87.81 Personal history of (healed) traumatic fracture; Z79.899 Other long term (current) drug therapy; Z87.891 Personal history of nicotine dependence
CPT/HCPCS: 99202

== ENCOUNTER → 2022-04-26 | Outpatient (CLI) | payer OTHER ==
--- NOTE | 2022-04-26 07:28 | US ---
EXAMINATION TYPE: US liver DATE OF EXAM: 04/26/2022 COMPARISON: None available. CLINICAL HISTORY: B18.2 HEP C. TECHNIQUE: Multiple sonographic images of the right upper quadrant are obtained. FINDINGS: EXAM MEASUREMENTS: Liver Length: 10.7 cm Gallbladder Wall: 0.2 cm CBD: 0.5 cm Right Kidney: 8.3 x 3.6 x 4.4 cm Pancreas: visualized portions wnl Liver: wnl , no cirrhotic morphology or suspicious lesion. Gallbladder: No stones seen, no pericholecystic fluid or wall thickening. Evidence for sonographic Mccarthy's sign: No CBD: wnl Right Kidney: No hydronephrosis or masses seen IMPRESSION: Noncirrhotic morphology without suspicious hepatic lesion.
[2022-04-26 10:32] LABS: Basophils # (A) 0.05 X 10*3/uL (0.00-0.10); Basophils % (A) 0.7 %; Eosinophils # (A) 0.03 X 10*3/uL (0.04-0.35); Eosinophils % (A) 0.4 %; HCT 43.8 % (37.2-46.3); HGB 14.5 g/dL (12.0-15.0); Immature Grans, Automated 0.3 %; Lymphocytes # (A) 2.09 X 10*3/uL (0.90-5.00); Lymphocytes % (A) 30.2 %; MCHC 33.1 g/dL (32.0-37.0); MCV 87.6 fL (80.0-97.0); Mean Platelet Volume 11.8 fL (9.5-12.2); Monocytes # (A) 0.51 X 10*3/uL (0.20-1.00); Monocytes % (A) 7.4 %; NRBC Per 100 WBC 0 /100 WBCS (0.0-0.0); Neutrophils # (A) 4.21 X 10*3/uL (1.80-7.70); Platelet Count 372 X 10*3/uL (140-440); RDW 12.2 % (11.5-14.5); WBC 6.91 X 10*3/uL (4.50-10.00)
[2022-04-26 10:44] LABS: African American GFR (CKD) 111.8 (60.0-200.0); Albumin 4.3 g/dL (3.8-4.9); Albumin/Globulin Ratio 1.54 (1.60-3.17); BUN/Creat Ratio 12.34 Ratio (12.00-20.00); Blood Urea Nitrogen 9.4 mg/dL (9.0-27.0); Carbon Dioxide 25.3 mmol/L (20.0-27.5); Globulin 2.8 g/dL (1.6-3.3); Non-African American GFR(CKD) 96.4 (60.0-200.0); Potassium 4.5 mmol/L (3.5-5.5); Total Bilirubin 0.4 mg/dL (0.30-1.20); Total Protein 7.1 g/dL (6.2-8.2)
== END | disposition home or self-care (01) ==
LOC: RADUSWWP 06:58
PROVIDERS: ATTEND Internal Medicine Gastroenterology
DX: B18.2 Chronic viral hepatitis C (principal)
CPT/HCPCS: 76705; 80053; 82105; 85025; 87522

== ENCOUNTER 2022-11-01 11:27 | Emergency (ER) | payer OTHER ==
[2022-11-01] MEDS ORDERED: ACETAMINOPHEN TAB 325 MG TAB PO STA (12:08)
[2022-11-01] MEDS ORDERED: IBUPROFEN 600 MG TAB PO STA (12:08)
--- NOTE | 2022-11-01 12:12 | ED ---
ENT HPI - General Chief complaint: ENT Stated complaint: Nose Injury Time Seen by Provider: 11/01/22 12:05 Source: patient, RN notes reviewed Mode of arrival: ambulatory Limitations: no limitations - History of Present Illness Initial comments: This is a 42-year-old female who presents to the emergency department for a nose injury. Patient states that her daughter ran headfirst into her nose earlier today. States that her nose feels very painful and swollen. She has broken her nose in the past and states that it feels similar. Denies any nosebleeds. Denies any other injuries. Denies any fevers, chills, sore throat, cough, dyspnea, chest pain, palpitations, abdominal pain, nausea, vomiting, diarrhea, back pain, or headaches. MD complaint: other (Nose injury) - Related Data Home Medications Medication Instructions Recorded Confirmed Ppq-Vuau-Honfm Acid 1 cap PO DAILY 07/13/18 07/27/18 [-U Capsule (formulary)] Propranolol [Inderal] 20 mg PO BID 07/13/18 07/27/18 Aspirin 81 mg PO DAILY 07/27/18 07/27/18 Previous Rx's Medication Instructions Recorded Venlafaxine HCl ER [Effexor XR] 150 mg PO DAILY #15 cap 01/15/17 Cephalexin [Keflex] 500 mg PO Q8HR #21 cap 07/13/18 Metoclopramide [Reglan] 10 mg PO ACHS #15 tab 07/13/18 HYDROcodone/APAP 5-325MG [Columbus 1 tab PO Q6HR PRN 3 Days #12 tab 11/01/22 5-325] Allergies Allergy/AdvReac Type Severity Reaction Status Date / Time No Known Allergies Allergy Verified 11/01/22 11:49 Review of Systems ROS Statement: Those systems with pertinent positive or pertinent negative responses have been documented in the HPI. ROS Other: All systems not noted in ROS Statement are negative. Past Medical History Past Medical History: Hypertension Additional Past Medical History / Comment(s): HEPATITIS C, endometriosis,diverticulitis History of Any Multi-Drug Resistant Organisms: None Reported Past Surgical History: No Surgical Hx Reported Past Psychological History: Anxiety, Depression Smoking Status: Never smoker Past Alcohol Use History: None Reported, Occasional Past Drug Use History: None Reported, Opiates, Prescription Drug Abuse - Past Family History Father History Unknown: Yes Additional Family Medical History / Comment(s): mental illness unspecified Mother History Unknown: Yes Additional Family Medical History / Comment(s): mental illness unspecified General Exam Limitations: no limitations General appearance: alert, in no apparent distress Head exam: Present: atraumatic, normocephalic, normal inspection ENT exam: Present: other (Mild swelling and ecchymosis to the bridge of the nose. Overlying tenderness. No septal hematoma) Respiratory exam: Present: normal lung sounds bilaterally. Absent: respiratory distress, wheezes, rales, rhonchi, stridor Cardiovascular Exam: Present: regular rate, normal rhythm, normal heart sounds. Absent: systolic murmur, diastolic murmur, rubs, gallop, clicks Neurological exam: Present: alert, oriented X3, CN II-XII intact Psychiatric exam: Present: normal affect, normal mood Skin exam: Present: warm, dry, intact, normal color. Absent: rash Course Vital Signs 11/01/22 11/01/22 11:47 13:22 Temperature 98.6 F 98.1 F Pulse Rate 83 73 Respiratory 20 16 Rate Blood Pressure 153/94 129/83 O2 Sat by Pulse 99 100 Oximetry Medical Decision Making - Medical Decision Making This is a 42-year-old female who presents to the emergency department for a nose injury. Was pt. sent in by a medical professional or institution? @ -No Did you speak to anyone other than the patient for history? @ -No Did you review nursing and triage notes? @ -Yes, and I agree, it is accurate with regards to the patient's symptoms. Were old charts reviewed? @ -No Differential Diagnosis? @ -Differential Nose Injury: Fracture, dislocation, contusion, this is not meant to be an all-inclusive list. X-rays interpreted by me (1pt min.)? @ -X-ray of the nasal bones obtained. My interpretation identifies a fracture through the nasal bridge with very minimal displacement. What testing was considered but not performed? (CT, X-rays, U/S, labs)? Why? @ -None What meds were considered but not given? Why? @ -None Did you discuss the management of the patient with other professionals? @ -No Did you reconcile home meds? @ -No Was smoking cessation discussed for >3mins.? @ -No Was critical care preformed (if so, how long)? @ -No Were there social determinants of health that impacted care today? How? (Homelessness, low income, unemployed, alcoholism, drug addiction, transportation, low edu. Level, literacy, decrease access to med. care, [place] [facility], rehab)? @ -No Was there de-escalation of care discussed even if they declined? (Discuss DNR or withdrawal of care, Hospice)? @ -No What co-morbidities impacted this encounter? (DM, HTN, Smoking, COPD, CAD, Cancer, CVA, Hep., AIDS, mental health diagnosis, sleep apnea, morbid obesity)? @ -None Was patient admitted / discharged? @ -Discharged. X-ray of the nasal bones obtained revealing a very minimally displaced fracture through the nasal bridge. Ibuprofen and Tylenol administered for pain relief, with minimal improvement. Patient requests something stronger for pain. Rx for 3 day course of Columbus provided. She is instructed to take this sparingly when her pain is the most severe, and to otherwise alternate with ibuprofen and Tylenol. Advised that the Columbus can be sedating and she should avoid driving or operating machinery when taking this. She is also instructed to apply ice for 10-15 minutes every 2-3 hours. Information for ENT follow-up provided and nose blowing precautions were reviewed. Undiagnosed new problem with uncertain prognosis? @ -None Drug Therapy requiring intensive monitoring for toxicity (Heparin, Nitro, Insulin, Cardizem)? @ -None Were any procedures done? @ -None Diagnosis/symptom? @ -Nasal bone fracture Acute, or Chronic, or Acute on Chronic? @ -Acute Uncomplicated (without systemic symptoms) or Complicated (systemic symptoms)? @ -Uncomplicated Side effects of treatment? @ -None Exacerbation, Progression, or Severe Exacerbation] @ -Not applicable Poses a threat to life or bodily function? @ -No Return precautions reviewed in depth, the patient is instructed to return to the emergency department with any new, worsening, or concerning symptoms. Patient verbalized understanding. This case was discussed in detail with the attending ED physician, Dr. Adair. Presentation, findings, and treatment plan discussed in detail as well. - Radiology Data Radiology results: report reviewed, image reviewed Disposition Clinical Impression: Nasal bone fracture Disposition: HOME SELF-CARE Instructions (If sedation given, give patient instructions): Nasal Fracture (ED) Additional Instructions: Return to the emergency department with any new, worsening, or concerning symptoms. Alternate with ibuprofen and Tylenol as needed for pain relief. Take the Columbus sparingly when your pain is the most severe and be aware that it may be sedating. Apply ice for 10-15 minutes every 2-3 hours. Avoid blowing your nose. Contact ENT as listed below for a follow-up appointment and reevaluation of ongoing symptoms. Prescriptions: HYDROcodone/APAP 5-325MG [Columbus 5-325] 1 tab PO Q6HR PRN 3 Days #12 tab PRN Reason: Pain Is patient prescribed a controlled substance at d/c from ED?: Yes When asked, does pt state using other controlled substances?: No If prescribed controlled substance>3 days was MAPS reviewed?: Prescribed <3 Days Referrals: Issac Singh MD [Primary Care Provider] - 1-2 days
--- NOTE | 2022-11-01 12:55 | XR ---
EXAMINATION TYPE: XR nasal bone DATE OF EXAM: 11/01/2022 COMPARISON: CT facial bones 2016 HISTORY: Focal pain after injury. TECHNIQUE: Both lateral along with frontal projections FINDINGS: There is linear lucency with subtle cortical disruption and mild overlying soft tissue swel ling over the nasal bridge consistent with acute minimally displaced fracture injury. Nasal septum re gene in the midline. IMPRESSION: As above.
[2022-11-01 13:25] VITALS: BP 129/83; PULSE 73; RESP 16; TEMP 98.1
== END 2022-11-01 13:29 | disposition home or self-care (01) ==
LOC: EC 11:27
DX: S02.2XXA Fracture of nasal bones, initial encounter for closed fracture (principal); I10 Essential (primary) hypertension; F41.9 Anxiety disorder, unspecified; F32.A Depression, unspecified; Z79.899 Other long term (current) drug therapy; X58.XXXA Exposure to other specified factors, initial encounter
CPT/HCPCS: 70160; 99283

== ENCOUNTER → 2024-11-28 | Outpatient (CLI) | payer BC ==
--- NOTE | 2024-11-28 09:05 | MR ---
INDICATION: Patient age:Female; 44 years old; Reason for study: R20.9 parasthesis/numbness; [facility]. COMPARISON: MRI brain 10/28/2018, CT brain C-spine facial bones 07/18/2016. TECHNIQUE: Multi planar, multi sequence imaging was performed through the brain. Specialized thin se quences were obtained through the internal auditory canals. Pre-and post gadolinium sequences were o btained as well after administration of 5 cc of Gadobutrol. FINDINGS: The lopez-white junctions, ventricular system, basal cisterns appear unremarkable. Diffusion-weighted imaging shows no evidence of restricted diffusion. Stable T2/FLAIR hyperintense signal within the r ight periatrial region. No other new FLAIR signal abnormalities. The susceptibility weighted images d o not reveal any evidence for micro-hemorrhage.After administration of gadolinium, no abnormal enhanc ement is seen. The bone marrow signal is within normal limits. The globes unremarkable. Mild mucosal thickening of the ethmoid sinuses with minimal coastal thickening of the left maxillary sinus. a The 7th cranial nerves and 8 cranial nerves appear unremarkable. No cerebellar pontine angle mass. Le ft AICA type 2 vascular loop (series 301, image 59). There is possible contact of the right superior cerebellar artery along the inferior aspect of the right trigeminal nerve approximately 5-6 mm from the root entry zone (series 801, image 67). No high-resolution heavily T2-weighted sequence sagittal or coronal imaging was obtained due to type of protocol. After the administration gadolinium, no abno rmal enhancement is seen within the internal auditory canals. IMPRESSION: 1. No evidence of intracranial mass, acute/subacute infarct, or abnormal enhancement. 2. Similar minimal nonspecific white matter changes without enhancement. Etiologies include demyelina ting disease versus chronic migraine versus small vessel ischemic disease versus other. 3. Right superior cerebellar artery possibly contacts the inferior aspect of the right trigeminal ner ve approximately 5 to 6 mm from the root entry zone. Consider further evaluation with MRI trigeminal nerve protocol as clinically indicated. 4. Left AICA type II vascular loop. [facility], , 11/28/2024 9:03 AM
== END | disposition home or self-care (01) ==
LOC: RADMRIMAIN 07:21
PROVIDERS: ATTEND Psychiatry & Neurology Neurology
DX: G43.009 Migraine without aura, not intractable, without status migrainosus (principal); R20.9 Unspecified disturbances of skin sensation; G50.0 Trigeminal neuralgia; R90.82 White matter disease, unspecified
CPT/HCPCS: 70553; A9585

== ENCOUNTER → 2025-01-09 | Outpatient (CLI) | payer OTHER ==
--- NOTE | 2025-01-09 12:43 | MR ---
INDICATION: Patient age:Female; 44 years old; Reason for study: G50.0 trigeminal neuralgia; [facility]. COMPARISON: MRI brain 11/28/2024, 10/28/2017, CT brain C-spine facial bones 07/18/2016. TECHNIQUE: Additional T2 sagittal and cortical weighted imaging of the trigeminal nerves were perform ed from prior MRI brain 11/28/2024. No contrast was administered. FINDINGS: The 7th cranial nerves and 8 cranial nerves appear unremarkable. No cerebellar pontine angle mass. Le ft AICA type 2 vascular loop redemonstrated. There is close proximity of the right superior cerebella r artery to the right trigeminal nerve root entry zone superior surface without definitive contact or mass effect. IMPRESSION: 1. Right superior cerebellar artery demonstrates close proximity to the right trigeminal nerve root e ntry zone without definitive contact or mass effect. 2. Left AICA type II vascular loop. [facility], , 01/09/2025 12:40 PM
== END | disposition home or self-care (01) ==
LOC: RADMRIMAIN 11:40
PROVIDERS: ATTEND Psychiatry & Neurology Neurology
DX: G50.0 Trigeminal neuralgia (principal); G93.89 Other specified disorders of brain